=== PATIENT | female | born 1970 | race Caucasian/White ===

== ENCOUNTER 2017-05-21 19:46 | Inpatient (IN) | payer OTHER ==
[~2017-05-21] VITALS: Ht 160 cm; Wt 115.6 kg
[~2017-05-21 19:46] MED LIST: AMITRIPTYLIN25 MG PO; AMITRIPTYLIN50 MG PO; BACTRIM DS1 TAB PO; CELEXA20 MG PO; CIPRO500 MG OR; CIPROFLOXACN500 MG PO; DILAUDID 2MG2 MG/TA1 PO; FERROUS SULFAT325 MG PO; FLORASTOR250 M1 PO; GLIPIZIDE ER10 MG OR; GLIPIZIDE XL5 MG PO; HYDROCHLORO25 MG/TAB PO; HYDROCHLOROT12.5 M1 PO; HYDROCHLOROT12.5 MG PO; LANTUS100 MG/ML SC; LANTUS100 UNIT/M SC; LEVEMIR FL100 UNIT/M SC; LISINOPRIL20 MG PO; LOPRESSOR12.5 MG PO; LORTAB 10 PO; LORTAB 5 OR; LORTAB 5/3255 MG PO; LORTAB5 PO; MACRODANTIN100 MG OR; MACRODANTIN100 MG PO; METFORMIN1000 MG PO; METFORMIN500 MG PO; METO50TA52 PO; MINOCYCLINE100 MG PO; NORCO1 TA1 PO; NOVOLIN R SC; PERCOCET 5/325M1 TAB OR; PERCOCET 5/325M1 TAB PO; PREVACID30 M2 PO; PRILOSEC40 MG PO; TAM75CAP PO; TORADOL PO; TRICOR145 MG PO; TRICOR48 MG PO; ULTRAM50 M1 PO; ULTRAM50 MG OR; ULTRAM50 MG PO; VICODIN1 TA1 PO; XANAX0.5 MG PO; ZESTRIL/PRIN5 MG/TA1 PO; ZESTRIL20 MG OR; ZOFRAN ODT8 MG SL
[2017-05-21] MEDS ORDERED: METFORMIN500 MG PO (19:59)
[2017-05-21] MEDS ORDERED: CILOSTAZOL100 MG PO (20:01)
--- NOTE | 2017-05-21 20:03 | NUR ---
PT PLACED BACK IN WAITING ROOM, ADVISED OF BUSY ER STATUS
--- NOTE | 2017-05-21 20:10 | NUR ---
PT TO RM 14 VIA W/C.
--- NOTE | 2017-05-21 20:50 | NUR ---
DR YANES AT BEDSIDE.
[2017-05-21 21:33] LABS: HEMATOCRIT 30.5 % (37.0-47.0); HEMOGLOBIN 9.7 g/dl (12.0-16.0); IMMATURE GRANULOCYTES 0.5 % (0.0-1.0); MEAN CELL VOLUME 81.6 fL CALC (80.0-100.0); MEAN CORPUSCULAR HGB 25.9 pG CALC (26.0-32.0); MEAN CORPUSCULAR HGB CONC 31.8 g/L CALC (32.0-36.0); NEUT# 5.98 thou/uL (2.00-7.15); RED BLOOD COUNT 3.74 mill/uL (4.20-5.60); RED CELL DISTRI WIDTH 14.6 % (11.5-15.5)
--- NOTE | 2017-05-21 21:35 | NUR ---
PT REQUESTED ACCUCHECK. ACCOMP 119.
[2017-05-21 22:00] LABS: ALBUMIN 3.6 g/dL (3.2-5.0); ALKALINE PHOSPHATASE 88 u/l (38-126); BILIRUBIN, TOTAL 0.3 mg/dL (0.0-1.4); BUN 26 mg/dL (7-17); BUN/CREATININE RATIO 24 (12-20 (CALC)); CALCIUM 9.3 mg/dL (8.4-10.2); CARBON DIOXIDE 20 mmol/l (22-30); CHLORIDE 106 mmol/l (95-108); CREATININE 1.1 mg/dL (0.5-1.0); GFR 53 ML/MIN (>=60 (CALC)); GFR FOR AFR.AMER. > 60 ML/MIN (>=60 (CALC)); GLUCOSE 138 mg/dL (65-105); SGOT/AST 14 u/l (14-36); SGPT/ALT 23 u/l (9-52); SODIUM 140 mmol/l (137-146); TOTAL PROTEIN 7.3 g/dL (6.3-8.2)
[2017-05-21 22:02] LABS: ANION GAP 19 (6-22 (CALC)); POTASSIUM 4.6 mmol/l (3.5-5.1)
--- NOTE | 2017-05-21 22:45 | NUR ---
IV INFUSING, PT WATCHING TV, NO DISTRESS NOTED. CALL TINAJERO IN REACH.
--- NOTE | 2017-05-21 23:10 | NUR ---
REPORT CALLED TO [facility].
--- NOTE | 2017-05-21 23:38 | NUR ---
BALBINA WRAP TO BILAT FEET.
--- NOTE | 2017-05-21 23:45 | NUR ---
PT TO ROOM 269 VIA STRETCHER ACCOMPANIED BY ER STAFF.
--- NOTE | 2017-05-21 23:54 | NUR ---
PT TO 269 WITH RN.
--- NOTE | 2017-05-22 | NUR ---
BILAT FEET COVERED SO THAT PT COULD GET A SHOWER.
[2017-05-22 01:00] VITALS: BP 141/82
--- NOTE | 2017-05-22 01:00 | NUR ---
PT SITTING UP IN BED. PT IS ALERT AND ORIENTED X3. PERRLA. RESP ARE EVEN AND UNLABORED. LUNGS ARE CLEAR. HEART RATE REGULAR. PULSES PALPABLE THROUGHOUT. NO EDEMA NOTED. BS ACTIVE PT REPORTS A NORMAL BM EARLIER TODAY. BOTH GREAT TOE ARE S/P AMPUTATION. LEFT FOOT RED AND WARM TO TOUCH. ULCERS NOTED TO BOTTOM OF BOTH FEET. #20 LAC NO REDNESS OR EDEMA NOTED. WILL CONTINUE TO MONITOR
[2017-05-22 04:35] VITALS: BP 158/65
--- NOTE | 2017-05-22 04:47 | NUR ---
PT RESTING IN BED WITH EYES CLOSED. AROUSES TO VERBAL STIMULI. RESP ARE EVEN AND UNLABORED. NO CHANGE IN PT STATUS. WILL CONTINUE TO MONITOR
--- NOTE | 2017-05-22 07:00 | NUR ---
REPORT RECIEVED FROM CATHERINE BLANDON. PT APPEARS ASLEEP ON ENTRY. RESP EVEN AND UNLABORED. NO SIGNS OF DISTRESS. SAFETY PRECAUTIONS IN PLACE. CALL LIGHT WITHIN REACH. WILL CONTINUE TO MONITOR.
[2017-05-22 09:46] LABS: HEMATOCRIT 29.4 % (37.0-47.0); HEMOGLOBIN 9.2 g/dl (12.0-16.0); IMMATURE GRANULOCYTES 0.5 % (0.0-1.0); MEAN CELL VOLUME 82.6 fL CALC (80.0-100.0); MEAN CORPUSCULAR HGB 25.8 pG CALC (26.0-32.0); MEAN CORPUSCULAR HGB CONC 31.3 g/L CALC (32.0-36.0); NEUT# 4.95 thou/uL (2.00-7.15); RED BLOOD COUNT 3.56 mill/uL (4.20-5.60); RED CELL DISTRI WIDTH 14.6 % (11.5-15.5)
[2017-05-22 10:19] LABS: ANION GAP 17 (6-22 (CALC)); BUN 21 mg/dL (7-17); BUN/CREATININE RATIO 21 (12-20 (CALC)); CALCIUM 8.6 mg/dL (8.4-10.2); CALCULATED LDLCHOLESTEROL 91 mg/dL (62-129 (CALC)); CARBON DIOXIDE 19 mmol/l (22-30); CHLORIDE 109 mmol/l (95-108); CHOLESTEROL HDL RATIO 4.2 (<4.4 (CALC)); GFR 60 ML/MIN (>=60 (CALC)); GFR FOR AFR.AMER. > 60 ML/MIN (>=60 (CALC)); GLUCOSE 162 mg/dL (65-105); HDL CHOLESTEROL 37 mg/dL (>=40); MAGNESIUM 1.2 mg/dL (1.6-2.3); SODIUM 140 mmol/l (137-146); TOTAL CHOLESTEROL 156 mg/dl (0-199); TOTAL TRIGLYCERIDES 142 mg/dl (30-149); VLDL CHOLESTROL 28 mg/dl (1-41 (CALC))
--- NOTE | 2017-05-22 11:44 | NUR ---
PT HAS A BLOOD SUGAR OF 140. LEVEMIR 05/22/17 1030 DOSE HELD. VARGAS GRESHAM NOTIFIED.
--- NOTE | 2017-05-22 12:29 | NUR ---
S: JOANIE CORBIN is a 46 F who presents with worsening cellulitis of left foot. She has a history of IDDM, HTN, kidney sones, anxiety, and depression. All medications in patient's chart were reviewed. Allergies to iodinated contrast dyes. O: VS: BP 158/65, P 95, RR 18, T 97 Actual BW 115.6 kg, IBW 52.4 kg, Adjusted BW 77.7 kg, HT 63 in, Scr 1 g/dL, CrCl (using adjusted body wt) 86.2 ml/min A: Blood culture is pending. P: Patient received a one-time dose of vancomycin 1 g IV on 05/21/17 @ 4221. Vancomycin ordered for pharmacy to dose. Start Vancomycin 1500 mg IV Q12H. Vancomycin trough is to be drawn before the 4th dose on 05/23/17 @ 0130. Vancomycin goal trough is between 10-15 mcg/ml. Pharmacy will follow and/or advise on antibiotics use as needed.
--- NOTE | 2017-05-22 15:30 | NUR ---
IN ROOM WITH PT.
[2017-05-22 16:01] VITALS: BP 172/85
[2017-05-22 19:00] VITALS: BP 170/84
--- NOTE | 2017-05-22 19:32 | NUR ---
REPORT GIVEN TO CATHERINE BUSTAMANTE. NO CHANGE IN PT CONDITION. CALL LIGHT WITHIN REACH.
--- NOTE | 2017-05-22 19:37 | NUR ---
MAGNESIUM SPIKED AND INFUSING WITH NO COMPLICATIONS TO LAC. FAMILY AT BED SIDE. A/O X3, RESPIRATIONS EVEN AND UNLABORED.
--- NOTE | 2017-05-22 19:44 | NUR ---
MEDICATED WITH TYLENOL FOR C/O ABDOMINAL CRAMPING 10/17.
[2017-05-22 21:35] LABS: URINE BILIRUBIN - DIPSTICK NEGATIVE (NEGATIVE); URINE BLOOD DIPSTICK LARGE (NEGATIVE); URINE COLOR YELLOW; URINE GLUCOSE - DIPSTICK NEGATIVE (NEGATIVE); URINE KETONE NEGATIVE (NEGATIVE); URINE LEUK ESTERASE NEGATIVE (NEGATIVE); URINE NITRITE - DIPSTICK NEGATIVE (Negative); URINE PH 5.5 (4.5-8.0); URINE PROTEIN - DIPSTICK 30 mg/dL (NEG-TRACE); URINE UROBILINOGEN - DIPSTICK 0.2 E.U./dL (0.2)
[2017-05-22 21:45] LABS: URINE CLARITY SL CLOUDY
[2017-05-22 21:55] LABS: URINE RBC 25-50 RBC/hpf (0-5); URINE SQUAMOUS EPITHELIAL CELL FEW EPI/hpf (0-FEW); URINE WBC 0-2 WBC/hpf (0-5)
[2017-05-22 22:05] VITALS: BP 148/86
--- NOTE | 2017-05-23 00:40 | NUR ---
PT RESTING WITH EYES CLOSED, RESPIRATIONS EVEN AND UNLABORED, RESPONDS EASILY TO VERBAL COMMAND, ZOSYN SPIKED AND INFUSING WITH NO COMPLICATIONS.
[2017-05-23 05:35] VITALS: BP 119/59
[2017-05-23 06:09] LABS: HEMATOCRIT 28.3 % (37.0-47.0); HEMOGLOBIN 9.1 g/dl (12.0-16.0); IMMATURE GRANULOCYTES 0.4 % (0.0-1.0); MEAN CELL VOLUME 82.5 fL CALC (80.0-100.0); MEAN CORPUSCULAR HGB 26.5 pG CALC (26.0-32.0); MEAN CORPUSCULAR HGB CONC 32.2 g/L CALC (32.0-36.0); NEUT# 3.87 thou/uL (2.00-7.15); RED BLOOD COUNT 3.43 mill/uL (4.20-5.60); RED CELL DISTRI WIDTH 14.5 % (11.5-15.5)
[2017-05-23 06:21] LABS: ANION GAP 16 (6-22 (CALC)); BUN 22 mg/dL (7-17); BUN/CREATININE RATIO 19 (12-20 (CALC)); CALCIUM 8.6 mg/dL (8.4-10.2); CARBON DIOXIDE 20 mmol/l (22-30); CHLORIDE 109 mmol/l (95-108); CREATININE 1.1 mg/dL (0.5-1.0); GFR 53 ML/MIN (>=60 (CALC)); GFR FOR AFR.AMER. > 60 ML/MIN (>=60 (CALC)); GLUCOSE 114 mg/dL (65-105); POTASSIUM 4.6 mmol/l (3.5-5.1); SODIUM 140 mmol/l (137-146)
--- NOTE | 2017-05-23 07:12 | NUR ---
SHIFT CHANGE REPORT FROM MAXX, PT AWAKE ALERT AND ORIENTED, STATES SHE HAD A RESTLESS NIGHT BUT HAS NO PAIN AT THIS TIME, IV ABT JUST COMPLETED AND CATHETER FLUSHED, ALL NEEDS ADDRESSED, CALL TINAJERO IN REACH.
[2017-05-23 09:05] VITALS: BP 131/67
--- NOTE | 2017-05-23 12:03 | NUR ---
SITTING UP IN W/C AT THIS TIME, ALL NEEDS ADDRESSED, CALL TINAJERO IN REACH.
--- NOTE | 2017-05-23 14:36 | NUR ---
CONTACTED DR CORNEJO ABOUT PLAN FOR PT, STATED CONTINUE TO CHANGE DAILY DRESSING AND PT WILL BE CONTACTED WHEN BLOOD FLOW STUDIES ARE RECIEVED/REVIEWED.
[2017-05-23 15:39] VITALS: BP 140/78
--- NOTE | 2017-05-23 17:00 | NUR ---
OLD DRESSINGS REMOVED FROM WOUNDS TO BOTH LEGS, WOUNDS CLEANED WITH 0.9NS AND NEW DRESSINGS APPLIED PER ORDER.
[2017-05-23 19:03] VITALS: BP 168/74
--- NOTE | 2017-05-23 20:28 | NUR ---
LEAKING AT IV SITE DURING MIDDLE IV ABT INFUSION, UNABLE TO RESTART NEW SITE, NIGHT RN INFORMED AND CONTINUE CARE.
--- NOTE | 2017-05-23 21:00 | NUR ---
NEW IV STARTED TO RAC #22 ON 1ST ATTEMPT, TOLERATED WELL. A/O X3, RESPIRATIONS EVEN AND UNLABORED. ACCUCHECK 146, NO HS COVERAGE ORDERED, MEDICATED WITH SCHEDULED LEVEMIR 65INITS SQ, TOLERATED WELL, BED TIME SNACK PROVIDED.
--- NOTE | 2017-05-24 00:10 | NUR ---
OOB USING OWN WHEEL CHAIR TO BATHROOM ON HER OWN, NOT ABLE TO KEEP ACCURATE I'S AND O'S DUE TO PT REMOVING HAT FROM COMMODE, BACK TO BED, ZOSYIN INFUSING TO RAC WITH NO COMPLICATIONS. CALL LIGHT IN REACH.
--- NOTE | 2017-05-24 02:15 | NUR ---
VANCOMYCIN HELD DUE TO VANCO TROUGH BEING 21, SPOKE WITH MIO [employer] PHARMACIST FROM [facility].
[2017-05-24 04:24] VITALS: BP 125/59
--- NOTE | 2017-05-24 06:12 | NUR ---
ZOSYN INFUSING WITH NO COMPLICATINS, DENIES PAIN OR DISCOMFORT.
--- NOTE | 2017-05-24 07:00 | NUR ---
RECEIVED BEDSIDE REPORT FROM MAXX RODRIGUEZ. RESTING IN BED WITH EYES CLOSED, AWAKENS EASILY. RESPS EVEN AND UNLABORED ON ROOM AIR. VOICES NO NEEDS AT THIS TIME. PLAN OF CARE DISCUSSED. SAFETY PRECAUTIONS REINFORCED. BED IN LOWEST POSITION WITH WHEELS LOCKED. CALL LIGHT WITHIN REACH. ENCOURAGED PT TO CALL FOR ANY NEEDS.
[2017-05-24 08:02] VITALS: BP 126/64
--- NOTE | 2017-05-24 09:40 | NUR ---
DR RODRIGUEZ IN WITH PT, NEW ORDERS RECEIVED.
--- NOTE | 2017-05-24 10:38 | NUR ---
Vancomycin single level analysis: Current dose being given: 1500 mg Current dosing interval: 12 hrs Current infusion time (hrs): 2 Single level Trough Data: Trough level obtained: 21 mcg/ml Diagnosis: Cultures and sensitivities: WOUND GRAM + COCCI Recommendations: Give Vancomycin 1000 mg q 12 hrs. Infuse over 2 hrs Thank you for the consult, will continue to follow. Signature: JAYME HODGE PHARMD
--- NOTE | 2017-05-24 12:00 | NUR ---
SITTING IN BEDSIDE CHAIR. FAMILY AT BEDSIDE. #22 RAC INFUSING ZOSYN WITHOUT DIFFICULTY, SITE APPEARS HEALTHY. DRESSINGS TO BILAT FEET CDI. DENIES PAIN OR DISCOMFORT. DR RING IN WITH PT, NEW ORDERS RECEIVED. CALL LIGHT WITHIN REACH. ENCOURAGED PT TO CALL FOR ANY NEEDS.
[2017-05-24 15:15] VITALS: BP 142/68
--- NOTE | 2017-05-24 16:28 | NUR ---
RESTING IN BED WATCHING TV. RESPS EVEN AND UNLABORED ON ROOM AIR. #22 RAC INFUSING WITHOUT DIFFICULTY, SITE APPEARS HEALTHY. DRESSINGS TO BILAT FETT CDI. VOICES NO NEEDS AT THIS TIME. CALL LIGHT WITHIN REACH. WILL CONTINUE TO MONITOR.
[2017-05-24 19:25] VITALS: BP 152/78
--- NOTE | 2017-05-24 21:20 | NUR ---
PT RESTING AT BEDSIDE WATCHING TV;NEW #22G TO LEFT HAND STARTED BY LISA,FLUSHED AND PATENT;CONTACT PRECAUTIONS IN PLACE FOR HX OF MRSA;ASSESSMENT COMPLETED;PT EDUCATED ON NPO DIET AFTER MIDNIGHT AND VERBALIZES UNDERSTANDING;DRESSINGS TO BLE REMAIN CDI;RESPIRATIONS EVEN AND UNLABORED ON RA;PT DENIES ANY OTHER NEEDS AT THIS TIME AND IS EDUCATED TO CALL FOR ASSISTANCE IF NEEDED;CALL LIGHT IN REACH;WILL CONTINUE TO MONITOR
[2017-05-25] VITALS (11 sets, daily range): BP systolic 127–149; BP diastolic 42–76
--- NOTE | 2017-05-25 00:30 | NUR ---
PT APPEARS TO BE SLEEPING AT THIS TIME WITH EYES CLOSED;WOKE PT TO ADMINISTER MEDICATION;IV SITE FOUND DISLODGED AT THIS TIME WITH CATHETER INTACT;NEW #22G STARTED TO LEFT FOREARM BY CATHERINE BRIAN AND SECURED WITH COBAN;PT DENIES ANY OTHER NEEDS AT THIS TIME;WILL CONTINUE TO MONITOR
[2017-05-25 05:48] LABS: HEMATOCRIT 30.6 % (37.0-47.0); HEMOGLOBIN 9.7 g/dl (12.0-16.0); IMMATURE GRANULOCYTES 0.4 % (0.0-1.0); MEAN CORPUSCULAR HGB CONC 31.7 g/L CALC (32.0-36.0); NEUT# 4.79 thou/uL (2.00-7.15); RED BLOOD COUNT 3.73 mill/uL (4.20-5.60); RED CELL DISTRI WIDTH 14.4 % (11.5-15.5)
--- NOTE | 2017-05-25 05:50 | NUR ---
PT APPEARS TO BE SLEEPING WITH EYES CLOSED;WOKE PT TO ADMINISTER SCHEDULED MEDICATION;PT VOICES NO COMPLAINTS OR CONCERNS AT THIS TIME;GOWN PROVIDED;FALL PRECAUTIONS IN PLACE;CALL LIGHT IN REACH;WILL CONTINUE TO MONITOR
[2017-05-25 06:11] LABS: CALCIUM 9.3 mg/dL (8.4-10.2); CREATININE 1.2 mg/dL (0.5-1.0); POTASSIUM 4.4 mmol/l (3.5-5.1)
--- NOTE | 2017-05-25 07:00 | NUR ---
RECEIVED BEDSIDE REPORT FROM DEBRA RODRIGUEZ. RESTING IN BED WITH EYES CLOSED, AWAKENS EASILY. RESPS EVEN AND UNLABORED ON ROOM AIR. DRESSINGS TO BILAT FEET CDI. DENIES PAIN OR DISCOMFORT. ENCOURAGED PT TO REMAIN NPO. PLAN OF CARE DISCUSSED. SAFETY PRECAUTIONS REINFORCED. BED IN LOWEST POSITION WITH WHEELS LOCKED. CALL LIGHT WITHIN REACH. WILL CONTINUE TO MONITOR.
--- NOTE | 2017-05-25 08:10 | NUR ---
TO OR VIA STRETCHER ACCOMPANIED BY DULCE ALEXANDER.
--- NOTE | 2017-05-25 11:55 | NUR ---
FROM OR VIA STRETCHER ACCOMPANIED BY CECE ALEXANDER. TRANSFERRED TO BED WITH STANDBY ASSIST. FAMILY AT BEDSIDE. LEFT FOOT WITH BOOT CAST WRAPPED WITH ETHEL. LEFT FOOT ELEVATED ON 2 PILLOWS WITH ICE PACK TO POPLITEAL FOSSA. #20 LFA INFUSING WITHOUT DIFFICULTY, SITE APPEARS HEALTHY. DENIES PAIN OR DISCOMFORT. ORIENTED TO ROOM AND CALL SYSTEM. SAFETY PRECAUTIONS REINFORCED. BED IN LOWEST POSITION WITH WHEELS LOCKED. CALL LIGHT WITHIN REACH. ENCOURAGED PT AND FAMILY TO CALL FOR ANY NEEDS.
--- NOTE | 2017-05-25 18:08 | NUR ---
TOLERATING REG DIET WITHOUT C/O ABD PAIN OR NAUSEA. LEFT ELEVATED ON 2 PILLOWS, ICE PACK TO POPLITEAL FOSSA. FAMILY AT BEDSIDE. DENIES PAIN OR DISCOMFORT. CALL LIGHT WITHIN REACH. WILL CONTINUE TO MONITOR.
--- NOTE | 2017-05-25 21:40 | NUR ---
PT RESTING IN SUPINE POSITION PLAYING ON HER PHONE;PT VOICES NO COMPLAINTS OR CONCERNS AT THIS TIME;RESPIRATIONS EVEN AND UNLABORED ON RA;#20G TO LEFT FOREARM FLUSHED AND PATENT;DRESSING TO RT AND LT FOOT CDI;PT EDUCATED TO ELEVATE LEFT FOOT AND VERBALIZES UNDERSTANDING;PT DENIES ANY NEEDS AT THIS TIME;SAFETY PRECAUTIONS REINFORCED;CALL LIGHT IN REACH;WILL CONTINUE TO MONITOR
--- NOTE | 2017-05-25 23:30 | NUR ---
PT APPEARS TO BE SLEEPING IN SUPINE POSITION WITH EYES CLOSED;NO S/S OF DISTRESS NOTED;RESPIRATIONS EVEN AND UNLABORED ON RA;LEFT LEG ELEVATED ON PILLOW;FALL PRECAUTIONS IN PLACE;CALL LIGHT IN REACH;WILL CONTINUE TO MONITOR
[2017-05-26 03:05] LABS: HEMATOCRIT 27.3 % (37.0-47.0); HEMOGLOBIN 8.7 g/dl (12.0-16.0); IMMATURE GRANULOCYTES 0.4 % (0.0-1.0); MEAN CORPUSCULAR HGB 26.4 pG CALC (26.0-32.0); MEAN CORPUSCULAR HGB CONC 31.9 g/L CALC (32.0-36.0); NEUT# 5.52 thou/uL (2.00-7.15); RED BLOOD COUNT 3.29 mill/uL (4.20-5.60); RED CELL DISTRI WIDTH 14.6 % (11.5-15.5)
[2017-05-26 04:05] LABS: CALCIUM 8.6 mg/dL (8.4-10.2); CREATININE 1.2 mg/dL (0.5-1.0); MAGNESIUM 1.7 mg/dL (1.6-2.3); POTASSIUM 4.5 mmol/l (3.5-5.1)
[2017-05-26 04:50] VITALS: BP 124/51
--- NOTE | 2017-05-26 04:50 | NUR ---
PT RESTING AT BEDSIDE;VS OBTAINED BY JOE GALICIA;PT DENIES ANY PAIN OR NEEDS AT THIS TIME;RESPIRATIONS EVEN AND UNLABORED ON RA;LEFT LEG REMAINS ELEVATED AND DRESSING CDI;FALL PRECAUTIONS IN PLACE;WILL CONTINUE TO MONITOR
--- NOTE | 2017-05-26 07:00 | NUR ---
RECEIVED BEDSIDE REPORT FROM DEBRA RODRIGUEZ. RESTING IN BED WITH EYES CLOSED. RESPS EVEN AND UNLABORED ON ROOM AIR. DRESSING TO BILAT FEET CDI. DENIES PAIN OR DISCOMFORT. PLAN OF CARE DISCUSSED. SAFETY PRECAUTIONS REINFORCED. BED IN LOWEST POSITION WITH WHEELS LOCKED.CALL LIGHT WIHTIN REACH. ENCOURAGED PT TO CALL FOR ANY NEEDS.
[2017-05-26 08:00] VITALS: BP 145/77
--- NOTE | 2017-05-26 08:25 | NUR ---
TO RADIOLOGY IN STABLE CONDITION VIA WHEELCHAIR ACCOMPANIED BY LEATHA DIAZ.
--- NOTE | 2017-05-26 10:25 | NUR ---
FROM RADIOLOGY VIA WHEELCHAIR ACCOMPANIED BY VOLUNTEER. DOUBLE LUMEN PICC TO ELAYNE, DRESSING INTACT, SITE APPEARS HEALTHY. VOICES NO NEEDS AT THIS TIME.
--- NOTE | 2017-05-26 13:10 | NUR ---
MEDICATED WITH PERCOCET PO FOR C/O 3/10 LEFT FOOT PAIN. ENCOURAGED PT TO ELEVATE LEFT FOOT AND ICE PACK TO LEFT POPLITEAL FOSSA. PT VERBALIZED UNDERSTANDING.
[2017-05-26 15:33] VITALS: BP 144/63
--- NOTE | 2017-05-26 16:00 | NUR ---
SITTING ON EDGE OF BED WITH FEET DANGLING. VISITORS AT BEDSIDE. ENCOURAGED PT TO ELEVATE LEFT FOOT AND ICE PACK ON 20 MINS OFF 20 MINS TO MINIMIZE PAIN AND SWELLING. CALL LIGHT WITHIN REACH. WILL CONTINUE TO MONITOR.
--- NOTE | 2017-05-26 16:00 | NUR ---
Visited pt rm for daily rounding. Pt is waiting for a R foot surgery tomorrow. Pt did not have any questions or concerns regarding her medications.
[2017-05-26 18:58] VITALS: BP 140/54
--- NOTE | 2017-05-26 21:15 | NUR ---
PT RESTING IN SUPINE POSITION WITH FAMILY AT BEDSIDE;PT VOICES NO COMPLAINTS OF PAIN AT THIS TIME;RESPIRATIONS EVEN AND UNLABORED ON RA;DOUBLE LUMEN PICC LINE FLUSHED,PATENT WITH GOOD BLOOD RETURN;PT REMAINS NON-WT BEARING,WC AT BEDSIDE;DRESSING TO BOTH BLE CDI;PT RE-EDUCATED ON KEEPING HER LEFT LEG ELEVATED AND USING AN ICE PACK BUT IS UNINTRESTED IN EDUCATION;PT AWARE OF NPO DIET AFTER MIDNIGHT;FALL PRECAUTIONS IN PLACE WITH CALL LIGHT IN REACH;WILL CONTINUE TO MONITOR
[2017-05-27] VITALS (11 sets, daily range): BP systolic 110–1369; BP diastolic 42–89
--- NOTE | 2017-05-27 00:15 | NUR ---
PT APPEARS TO BE SLEEPING WITH FAMILY AT BEDSIDE;VS OBTAINED BY JOE GALICIA;PT VOICES NO COMPLAINTS OR CONCERNS;RESPIRATIONS EVEN AND UNLABORED ON RA;PT NPO AT THIS TIME;PT EDUCATED TO CALL FOR ASSISTANCE IF NEEDED;CALL LIGHT IN REACH;WILL CONTINUE TO MONITOR
--- NOTE | 2017-05-27 06:00 | NUR ---
PT APPEARS TO BE SLEEPING IN SUPINE POSITION WITH FAMILY AT BEDSIDE;IV ABX STARTED,PICC LINE PATENT;RESPIRATIONS EVEN AND UNLABORED ON RA;PT VOICES NO COMPLAINTS OF CONCERNS;FALL PRECAUTIONS IN PLACE WITH CALL LIGHT IN REACH;WILL CONTINUE TO MONITOR
--- NOTE | 2017-05-27 07:00 | NUR ---
BEDSIDE REPORT RECIEVED FROM MICHAEL RICHARDSON. PT AWAKE AND IN WHEELCHAIR ON ENTRY. RESP EVEN AND UNLABORED. SAFTEY PRECAUTIONS REINFORCED. CALL LIGHT WITHIN REACH. WILL CONTINUE TO MONITOR.
--- NOTE | 2017-05-27 07:40 | NUR ---
PT HAS NO COMPLAINTS OF PAIN. PICC LINE HAS NO SIGNS OF INFLAMATION OR REDNESS. LEFT LEG HAS A HARD CAST ON THE FOOT AND CALF. POPLITEAL PULSE STRONG ON BOTH RIGHT AND LEFT LEG. CAPILARY REFILL <3 SEC. SAFETY PRECAUTIONS REINFORCED. CALL LIGHT WITHIN REACH.
--- NOTE | 2017-05-27 08:35 | NUR ---
PT OFF FLOOR WITH CATHERIEN RODRIGEZ TO OR VIA STRETCHER.
--- NOTE | 2017-05-27 11:25 | NUR ---
PT BACK ON FLOOR WITH OR NURSE. PT ORIENTED TO ROOM AND RESTING IN BED. NO SIGNS OF DISTRESS NOTED. VITALS STABLE. WILL CONTINUE TO MONITOR. CALL LIGHT WITHIN REACH.
--- NOTE | 2017-05-27 18:36 | NUR ---
PT RESITING SUPINE IN BED WATCHING TV WITH DAUGHTER AT BEDSIDE. NO COMPLAINTS OF PAIN FROM PT. POWER PICC PATENT. RIGHT AND LEFT LEG POPLITEAL PULSE STRONG. DRESSINGS CDI. CAPILLARY REFILL <3. CALL LIGHT WITHIN REACH.
--- NOTE | 2017-05-27 20:00 | NUR ---
PT IN BED A/O X3, RESPIRATIONS EVEN AND UNLABORED. P/O DAY 2 LEFT FOOT DUE TO I/D WITH PARTIAL 1ST METATARSAL EXCISION AND PERCUTANEOUS TENDONACHILLES LENGTHENING LEFT LEG. CAST AND ETHEL BANDAGE TO BILAT FEET. TODAY 05/27 PT IS P/O FOR IRRIGATION AND DEBRIDEMENT OF RIGHT FOOT 2ND METATARSAL HEAD RESECTION/RIGHT PERCUTANEOUS ACHILES TENDON LENTHENING. DENIES PAIN. TEACHING DONE REGARDING NWB AND USING BED MCADAMS, PT STATES SHE WILL NOT USE BED MCADAMS AND HAS BEEN USING BSC WITHOUT GETTING OUT OF BED, SHE SCOOTS HER BOTTOM OFF THE SIDE OF BED TO BSC WITH LEGS STILL ON THE BED. ORIENTED TO USE CALL LIGHT WHEN DOING SO, TO PREVENT FALL. CALL LIGHT IN REACH, WILL CONTINUE TO MONITOR.
--- NOTE | 2017-05-28 | NUR ---
RESTING WITH EYES CLOSED, RESPIRATIONS EVEN AND UNLABORED. CALL LIGHT IN REACH.
[2017-05-28 04:21] VITALS: BP 145/47
--- NOTE | 2017-05-28 04:23 | NUR ---
ASKED PT IF SHE NEEDS ASSISTANCE TO BSC, AND DENIES NEED. 1000ML URINE IN BSC, PT HAS NOT CALLED FOR ASSISTANCE ASKED TO BY STAFF TO PREVENT FALL, PT DENIES WEIGHT BEARING TO LOWER EXTREMITIES WHEN USING COMMODE, STATES SHE SCOOTS TO THE EDGE OF THE BED ON TO BSC WITH LEGS STILL ON THE BED. HAT PLACED IN BATHROOM FOR MEASUREMENT OF OUTPUT.
--- NOTE | 2017-05-28 05:55 | NUR ---
MORNING BLOOD WORK DRAWN FROM PICC LINE, GOOD BLOOD RETURN, TOLERATED WELL. FLUSHED WITH SALINE AND HEPARIN. VOICES NO CONCERNS.
[2017-05-28 06:22] LABS: HEMATOCRIT 26.4 % (37.0-47.0); HEMOGLOBIN 8.4 g/dl (12.0-16.0); MEAN CELL VOLUME 83.8 fL CALC (80.0-100.0); MEAN CORPUSCULAR HGB 26.7 pG CALC (26.0-32.0); MEAN CORPUSCULAR HGB CONC 31.8 g/L CALC (32.0-36.0); RED BLOOD COUNT 3.15 mill/uL (4.20-5.60); RED CELL DISTRI WIDTH 14.6 % (11.5-15.5)
[2017-05-28 06:48] LABS: CALCIUM 8.7 mg/dL (8.4-10.2); CREATININE 1.2 mg/dL (0.5-1.0)
--- NOTE | 2017-05-28 07:00 | NUR ---
REPORT RECIEVED FROM MICHALE LILLY. PT ASLEEP ON ENTERANCE. NO SIGNS OF DISTRESS NOTED. RESP EVEN AND UNLABORED. SAFETY PRECAUTIONS REINFORCED. CALL LIGHT WITHIN REACH. WILL CONTINUE TO MONITOR.
[2017-05-28 07:35] VITALS: BP 133/65
--- NOTE | 2017-05-28 09:10 | NUR ---
POWER PICC FLUSHED WITH NS AND HEPARIN PER PROTOCOL.
--- NOTE | 2017-05-28 11:29 | NUR ---
PHYSICAL THERAPY IN ROOM WITH PT.
[2017-05-28 15:46] VITALS: BP 157/77
--- NOTE | 2017-05-28 17:44 | NUR ---
PT UP TO SIDE OF BED EATING DINNER WITH FAMILY AT BEDSIDE. PT HAS NO COMPLAINTS OF PAIN. NO ACUTE CHANGES. BILAT LEG DRESSINGS CDI. POPLITEAL PULSE STRONG. WILL CONTINUE TO MONITOR. CALL LIGHT WITHIN REACH. NON-WEIGHT BEARING REINFORCED. PT INSTRUCTED TO CALL FOR ASSISTANCE.
[2017-05-28 19:26] VITALS: BP 145/59
--- NOTE | 2017-05-28 21:00 | NUR ---
SITTING ON SIDE OF BED A/O X3, RESPIRATIONS EVEN AND UNLABORED. STATES SHE'S BEEN TRANSFERRING HERSELF TO HER OWN W/C AND THEN TRANFERRING TO COMMODE INSTRUCTED BY PHYSINCAL THERAPY. DENIES PAIN. HARD CAST AND ETHEL BANDAGE COVERING BLE, CDI. ACCUCHECK 176. LEVEMIR 3UNITS SQ ADMINISTERED TO ELAYNE, BED TIME SNACK PROVIDED. ENCOURAGED TO USE CALL LIGHT FOR ASSISTANCE, WILL CONTINUE TO MONITOR.
[2017-05-28 23:13] VITALS: BP 136/66
--- NOTE | 2017-05-29 00:30 | NUR ---
RESTING WITH EYES CLOSED, RESPIRATIONS EVEN AND UNLABORED.
[2017-05-29 03:40] VITALS: BP 122/57
--- NOTE | 2017-05-29 04:30 | NUR ---
IN BED WITH EYES CLOSED, RESPIRATIONS EVEN AND UNLABORED.
[2017-05-29 07:35] VITALS: BP 117/63
--- NOTE | 2017-05-29 11:23 | NUR ---
PT.IN BED W/LIGHTS OUT SLEEPING AT THIS TIME. CALL LIGHT IS AT BEDSIDE. REPORT HAS BEEN RECEIVED FROM NIGHT NURSE.
[2017-05-29 15:28] VITALS: BP 163/77
[2017-05-29 19:40] VITALS: BP 149/86
--- NOTE | 2017-05-29 21:40 | NUR ---
PT RESTING IN BED WATCHING TV WITH FAMILY AT BEDSIDE;PT VOICES NO COMPLAINTS OR CONCERNS AT THIS TIME;RESPIRATIONS EVEN AND UNLABORED ON RA;PICC LINE TO UPPER RIGHT ARM FLUSHED,PATENT WITH GOOD BLOOD RETURN;DRESSINGS TO BLE REMAIN CDI;ASSESSMENT COMPLETED;I.S. AT BEDSIDE; CLEAR LUNGS;PT DENIES ANY OTHER NEEDS AT THIS TIME;SAFETY PRECAUTIONS REINFORCED WITH CALL LIGHT IN REACH;WILL CONTINUE TO MONITOR
--- NOTE | 2017-05-30 00:18 | NUR ---
PT APPEARS TO BE SLEEPING IN SUPINE POSITION WITH FAMILY AT BEDSIDE;VS OBTAINED BY JOE DESOUZA;PT VOICES NO COMPLAINTS OR CONCERNS AT THIS TIME;PT EDUCATED TO CALL FOR ASSISTANCE IF NEEDED;FALL PRECAUTIONS IN PLACE WITH CALL LIGHT IN REACH;WILL CONTINUE TO MONITOR
[2017-05-30 00:25] VITALS: BP 134/78
[2017-05-30 04:15] VITALS: BP 135/77
--- NOTE | 2017-05-30 04:15 | NUR ---
PT APPEARS TO BE SLEEPING IN SUPINE POSITION WITH FAMILY AT BEDSIDE;VS OBTAINED BY JOE DESOUZA;PT VOICES NO CONCERNS OR COMPLAINTS;RESPIRATIONS EVEN AND UNLABORED ON RA;RE-EDUCATED PT ON ELEVATION OF BLE;DRESSING REMAIN CDI;WILL CONTINUE TO MONITOR
--- NOTE | 2017-05-30 07:05 | NUR ---
PT.IN BED SLEEPING AT THIS TIME W/FAMILY ASLEEP AT BEDSIDE ON ROLL-AWAY BED. NO S/S OF DISTRESS, CALL LIGHT AT BEDSIDE
[2017-05-30 07:20] VITALS: BP 128/59
--- NOTE | 2017-05-30 08:51 | NUR ---
PT.IS SLEEPING, BUT AWOKE TO MY ENTERING THE ROOM. V/S ASSESSED AND PT.MEDICATED W/AM MEDICATIONS ORDERED. ANTIBIOTIC THERAPY ADMINISTERED AT THIS TIME. TOES BILATERAL WARM TO TOUCH, GOOD MOVEMENT BILAT. PT.DENIES ANY PAIN AT THIS TIME.
[2017-05-30 10:17] LABS: HEMATOCRIT 28.9 % (37.0-47.0); HEMOGLOBIN 9.3 g/dl (12.0-16.0); IMMATURE GRANULOCYTES 0.5 % (0.0-1.0); MEAN CELL VOLUME 81.2 fL CALC (80.0-100.0); MEAN CORPUSCULAR HGB 26.1 pG CALC (26.0-32.0); MEAN CORPUSCULAR HGB CONC 32.2 g/L CALC (32.0-36.0); NEUT# 5.48 thou/uL (2.00-7.15); RED BLOOD COUNT 3.56 mill/uL (4.20-5.60); RED CELL DISTRI WIDTH 14.4 % (11.5-15.5)
[2017-05-30 10:42] LABS: ANION GAP 18 (6-22 (CALC)); BUN 13 mg/dL (7-17); BUN/CREATININE RATIO 12 (12-20 (CALC)); CALCIUM 9.1 mg/dL (8.4-10.2); CARBON DIOXIDE 22 mmol/l (22-30); CHLORIDE 104 mmol/l (95-108); CREATININE 1.1 mg/dL (0.5-1.0); GFR 53 ML/MIN (>=60 (CALC)); GFR FOR AFR.AMER. > 60 ML/MIN (>=60 (CALC)); GLUCOSE 231 mg/dL (65-105); POTASSIUM 4.2 mmol/l (3.5-5.1); SODIUM 140 mmol/l (137-146)
[2017-05-30 10:48] LABS: MAGNESIUM 1.1 mg/dL (1.6-2.3)
[2017-05-30] MEDS ORDERED: VERAPAMIL HCL180 MG PO (12:54)
[2017-05-30] MEDS ORDERED: NOVOLOG100 UNIT/M SC (12:54)
[2017-05-30] MEDS ORDERED: ROCEPHIN 2 GM2 GM IV (12:54)
[2017-05-30] MEDS ORDERED: PERCOCET 10/31 COMBO PO (12:54)
--- NOTE | 2017-05-30 14:32 | NUR ---
Patient seen today for instruction in transfer safety to tub/shower using DME to maintain WBS. Patient educated in tub boards/tub transfer benches and home management safety W/C level. Patient reported going home today after receiving Cam walkers. Patient is motivated and cooperative and will benefit from home health care O.T. for safety/home management skills.
[2017-05-30 15:10] VITALS: BP 144/78
--- NOTE | 2017-05-30 15:31 | NUR ---
Spoke to patient regarding new medcations and their side-effects during discharge med rec. Spoke to patient about the importance of completing the course of IV antibiotics. Discussed the possible side-effects of antibiotics including nausea, vomiting, diarrhea, and infusion site reactions. Talked about diabetic diet and daily glucose monitoring. Talked in detail regarding dose adjustments for Lantus per discharge instructions. Talked about the signs, symptoms, and management of hypoglycemia.
--- NOTE | 2017-05-30 16:45 | NUR ---
PT.MEDICATED W/MAGNESIUM SULFATE AT THIS TIME. DR. IZQUIERDO REMOVED DRESSING/REDRESSED FEET BILAT AND FITTED PT.TO BOOTS. FAMILY AT BEDSIDE. PT.DENIES ANY OTHER NEEDS AT THIS TIME.
--- NOTE | 2017-05-30 18:24 | NUR ---
PT.MAG SULFATE HAS COMPLETED, PT.FLUSHED AND FLUSHED W/HEPARIN FOR PICC CARE AND PT.DISCHARGED OFF THE UNIT FLOOR IN GOOD CONDITION VIA WC ACCOMPANIED BY FAMILY.
== END 2017-05-30 18:25 | disposition home or self-care (01) | DRG 629 ==
LOC: ED 19:46 → ED-I 22:30 → ED 23:12 → MS2 23:13
PROVIDERS: Emergency Medicine; Internal Medicine; Nurse Practitioner Family; ADMIT Internal Medicine; ATTEND Internal Medicine
PROC: 0KBW0ZZ Excision of Left Foot Muscle, Open Approach (ICD-10-PCS; principal; 2017-05-22)
PROC: 0KBV0ZZ Excision of Right Foot Muscle, Open Approach (ICD-10-PCS; 2017-05-22)
PROC: 0QBP0ZX Excision of Left Metatarsal, Open Approach, Diagnostic (ICD-10-PCS; 2017-05-25)
PROC: 0L8P3ZZ Division of Left Lower Leg Tendon, Percutaneous Approach (ICD-10-PCS; 2017-05-25)
PROC: 0KBW0ZZ Excision of Left Foot Muscle, Open Approach (ICD-10-PCS; 2017-05-25)
PROC: 02HV33Z Insertion of Infusion Device into Superior Vena Cava, Percutaneous Approach (ICD-10-PCS; 2017-05-26)
PROC: B518ZZA Fluoroscopy of Superior Vena Cava, Guidance (ICD-10-PCS; 2017-05-26)
PROC: 0L8N3ZZ Division of Right Lower Leg Tendon, Percutaneous Approach (ICD-10-PCS; 2017-05-27)
PROC: 0QBN0ZZ Excision of Right Metatarsal, Open Approach (ICD-10-PCS; 2017-05-27)
PROC: 0KBV0ZZ Excision of Right Foot Muscle, Open Approach (ICD-10-PCS; 2017-05-27)
DX: E11.69 Type 2 diabetes mellitus with other specified complication (principal); M86.9 Osteomyelitis, unspecified; E11.22 Type 2 diabetes mellitus with diabetic chronic kidney disease; E11.621 Type 2 diabetes mellitus with foot ulcer; E11.42 Type 2 diabetes mellitus with diabetic polyneuropathy; L03.116 Cellulitis of left lower limb; E83.42 Hypomagnesemia; L97.426 Non-pressure chronic ulcer of left heel and midfoot with bone involvement without evidence of necrosis; L97.416 Non-pressure chronic ulcer of right heel and midfoot with bone involvement without evidence of necrosis; Z68.42 Body mass index [BMI] 45.0-49.9, adult; E11.628 Type 2 diabetes mellitus with other skin complications; N18.3 Chronic kidney disease, stage 3 (moderate); I12.9 Hypertensive chronic kidney disease with stage 1 through stage 4 chronic kidney disease, or unspecified chronic kidney disease; F43.10 Post-traumatic stress disorder, unspecified; F41.9 Anxiety disorder, unspecified; Q66.89 Other specified congenital deformities of feet; F32.9 Major depressive disorder, single episode, unspecified; L40.50 Arthropathic psoriasis, unspecified; D63.1 Anemia in chronic kidney disease; E86.0 Dehydration; D50.9 Iron deficiency anemia, unspecified; Z79.4 Long term (current) use of insulin; Z89.411 Acquired absence of right great toe; Z89.412 Acquired absence of left great toe; Z87.442 Personal history of urinary calculi; B95.61 Methicillin susceptible Staphylococcus aureus infection as the cause of diseases classified elsewhere
CPT/HCPCS: J1650; J3370; J3475

== ENCOUNTER 2017-10-04 12:10 | Inpatient (IN) | payer OTHER ==
[~2017-10-04] VITALS: Ht 160 cm; Wt 121.5 kg
[~2017-10-04 12:10] MED LIST changes: +CILOSTAZOL100 MG PO; +NOVOLOG100 UNIT/M SC; +PERCOCET 10/31 COMBO PO; +ROCEPHIN 2 GM2 GM IV; +VERAPAMIL HCL180 MG PO
--- NOTE | 2017-10-04 12:20 | NUR ---
PT SENT BACK TO WAITING ROOM, ADVISED OF BUSY ER STATUS
--- NOTE | 2017-10-04 12:59 | NUR ---
PT TO ROOM FOR EXAM
--- NOTE | 2017-10-04 13:35 | NUR ---
PT BROUGHT BACK TO ROOM FOR EXAM
[2017-10-04 14:41] LABS: HEMATOCRIT 29.4 % (37.0-47.0); HEMOGLOBIN 9.6 g/dl (12.0-16.0); IMMATURE GRANULOCYTES 0.6 % (0.0-1.0); MEAN CELL VOLUME 83.5 fL CALC (80.0-100.0); MEAN CORPUSCULAR HGB 27.3 pG CALC (26.0-32.0); MEAN CORPUSCULAR HGB CONC 32.7 g/L CALC (32.0-36.0); NEUT# 13.63 thou/uL (2.00-7.15); RED BLOOD COUNT 3.52 mill/uL (4.20-5.60); RED CELL DISTRI WIDTH 14.3 % (11.5-15.5)
[2017-10-04 14:59] LABS: CREATININE 1.7 mg/dL (0.5-1.0); POTASSIUM 3.8 mmol/l (3.5-5.1)
--- NOTE | 2017-10-04 15:03 | NUR ---
CM spoke with regarding admission status after reviewing the case and advised IP d/t active drainage fron the wound and elevates WBCs. stated " she will be here at least 2-3 days" and voiced agreement to IP.
--- NOTE | 2017-10-04 16:00 | NUR ---
AWAITING BED ASSIGNMENT, DENIES PAIN.
[2017-10-04] MEDS ORDERED: NOVOLOG100 UNIT/M SC ×2 (16:07→16:08)
[2017-10-04] MEDS ORDERED: METOPROL TAR25 MG PO (16:11)
[2017-10-04] MEDS ORDERED: LASIX20 MG PO (16:12)
[2017-10-04] MEDS ORDERED: TIMOLOL 0.5%5 ML OU (16:12)
--- NOTE | 2017-10-04 16:25 | NUR ---
DR RODRIGUEZ AT BEDSIDE FOR WOUND TREATMENT
--- NOTE | 2017-10-04 16:48 | NUR ---
Admission Note Report Given to: DEBRA ALEXANDER Transported by: Wheelchair X Stretcher Transported with: X Nurse Transporter X Patent IV O2 Label Printing Machinist
--- NOTE | 2017-10-04 16:50 | NUR ---
PT TRANSFERRED TO FLOOR VIA IN STABLE CONDITION ACCOMPANIED BY MARIELLA,CATHERINE AND FAMILY;PT REMAINED NON-AMBULATORY AT THIS TIME STATING "I WOULD RATHER REST IN THE WC",WT WAS OBTAINED ON STANDING SCALE;PT REPORTS HAVING DRY CRACKS ON HER FEET FOR A WEEK UNTIL BILATERAL HEELS STARTED DRAINING;BILATERAL FEET DRESSED WITH KERLEX IN THE ER BY DR. May;PT TO BE TAKEN DOWN TO OR FOR DEBRIDEMENT ON 10/05/17 @0830;UNABLE TO PALPATE PEDAL PULSES AT THIS TIME DUE TO DRESSINGS;PT DENIES ANY PAIN AND IS RE-EDUCATED ON PAIN SCALE AND REPORTING;RESPIRATIONS EVEN AND UNLABORED ON RA,CLEAR LUNG SOUNDS NOTED;ABDOMEN SOFT WITH X4 HYPOACTIVE BOWEL SOUNDS;#20G TO RAC INFUSING NS @ 100ML/HR,SITE APPEARS HEALTHY;PT EDUCATED ON NPO DIET STATUS AFTER MIDNIGHT AND VERBALIZES UNDERSTANDING;LAST BM 10/02/17;ALL SAFETY PRECAUTIONS REINFORCED;FALL PRECAUTIONS IN PLACE;WILL CONTINUE TO MONITOR
--- NOTE | 2017-10-04 19:31 | NUR ---
PT IN BED A/O X3, RESPIRATIONS EVEN AND UNLABORED. NURSE TO NURSE REPORT RECEIVED FROM DEBRA RODRIGUEZ, ENCOURAGED TO USE CALL LIGHT. WILL CONTINUE TO MONITOR.
[2017-10-04 19:56] VITALS: BP 142/66
--- NOTE | 2017-10-04 20:10 | NUR ---
TEMP 101.3, TYLENOL 650MG PO PROVIDED AT THIS TIME.
--- NOTE | 2017-10-04 23:50 | NUR ---
RESTING WITH EYES CLOSED, RESPIRATIONS EVEN AND UNLABORED. TEMP 97.6 AT THIS TIME. WATER REMOVED FROM BED SIDE, PT AWARE OF NPO AFTER MIDNIGHT. CALL LIGHT IN REACH.
[2017-10-05] VITALS (11 sets, daily range): BP systolic 102–143; BP diastolic 35–73
--- NOTE | 2017-10-05 05:00 | NUR ---
PT CALLED FOR ASSISTANCE DUE TO IV, IV TO LH HAS BECOME DISLODGED WITH CATH TIP INTACT. IV FLUIDS CONNECTED TO RAC, INFUSING WITH NO COMPLICATIONS.
[2017-10-05 05:42] LABS: HEMATOCRIT 26.9 % (37.0-47.0); HEMOGLOBIN 8.6 g/dl (12.0-16.0); IMMATURE GRANULOCYTES 0.8 % (0.0-1.0); MEAN CELL VOLUME 84.3 fL CALC (80.0-100.0); NEUT# 10.2 thou/uL (2.00-7.15); RED BLOOD COUNT 3.19 mill/uL (4.20-5.60); RED CELL DISTRI WIDTH 14.4 % (11.5-15.5)
[2017-10-05 05:46] LABS: CREATININE 1.7 mg/dL (0.5-1.0); POTASSIUM 3.6 mmol/l (3.5-5.1)
[2017-10-05 05:47] LABS: MAGNESIUM 1.5 mg/dL (1.6-2.3)
--- NOTE | 2017-10-05 06:18 | NUR ---
ATTEMPTED TO OBTAIN CONCENT FOR I'&D TO BILAT FEET, PT STATES SHE WANTS TO TALK TO HER DOCTOR PRIOR TO SIGNING CONCENT.
--- NOTE | 2017-10-05 07:15 | NUR ---
REPORT RECEIVED FROM MICHAEL LILLY;PT APPEARS TO BE SLEEPING IN SUPINE POSITION;NO S/S OF DISTRESS NOTED;RESPIRATIONS EVEN AND UNLABORED ON RA;IV SITE REMAINS PATENT;CONTACT PRECAUTIONS IN PLACE FOR HX OF MRSA;PT ENCOURAGED TO EXPRESS CONCERNS;NPO DIET STATUS;CALL LIGHT IN REACH;WILL CONTINUE TO MONITOR
--- NOTE | 2017-10-05 07:50 | NUR ---
PT APPEARS TO BE SLEEPING IN LEFT SIDE LAYING POSITION;WOKE PT TO OBTAIN VS AND COMPLETE ASSESSMENT;CURRENT TEMP 100.2.BLANKETS REMOVED AND AC LOWERED;RESPIRATIONS EVEN AND UNLABORED ON RA,CLEAR/DIMINISHED LUNG SOUNDS NOTED;ABDOMEN SOFT ON PALPATION AND ACTIVE IN ALL 4 QUADRANTS;NPO DIET STATUS SINCE MIDNIGHT;UNABLE TO PALPATE PEDAL PULSES DUE TO PRE-OP DRESSINGS,CDI;PHOTOGRAPHS OF WOUNDS IN CHART;#20G TO RAC INFUSING NS @ 100ML/HR,SITE APPEARS HEALTHY;CONTACT PRECAUTIONS IN PLACE FOR HX OF MRSA;PT VOICES NO COMPLAINTS OF PAIN,PAIN SCALE AND REPORTING RE-EDUCATED;FALL PRECAUTIONS IN PLACE;PT ENCOURAGED TO CALL FOR ASSISTANCE IF NEEDED;CALL LIGHT IN REACH;WILL CONTINUE TO MONITOR
--- NOTE | 2017-10-05 08:35 | NUR ---
PT TRANSFERRED TO OR VIA STRETCHER IN STABLE CONDITION ACCOMPANIED BY OR STAFF
--- NOTE | 2017-10-05 08:40 | NUR ---
Drug Selected: Vancomycin Age: 47 years Weight: 110 kg Height: 63 in Gender: Female SCR: 1.7 mg/dl Dosing weight: 75.44 kg IBW: 52.40 kg CRCL (ml/min): 33.8 Give Vancomycin 1250 mg q24 hrs PATIENT IS BEING TREATED FOR A DIABETIC FOOT INFECTION WE WILL TARGET A GOAL TROUGH OF 10-15 WE WILL PULL A TROUGH ON 10/07/17 AT 1330 THE PATIENT'S SCR IS ELEVATED WE WILL FOLLOW SCR AND ADJUST VANCO DOSE INDICATED.
--- NOTE | 2017-10-05 11:30 | NUR ---
PT TRANSPORTED BACK TO FLOOR VIA STRETCHER ACCOMPANIED BY OR STAFF;PT TRANSFERRED TO BED WITH ASSIST;MP PORTER AT BEDSIDE;PT DROWSY AT THIS TIME;VS OBTAINED;RESPIRATIONS EVEN AND UNLABORED ON RA;BILATERAL ANKLES DRESSED WITH ABD,CAST PADDING,4X4'S AND ZERFORM;PT ENCOURAGED TO KEEP LEGS ELEVATED ON X2 PILLOWS;CAP REFILL LESS THAN 3 SECONDS;I.S. AT BEDSIDE AND PT EDUCATED ON USING 10X PER HOUR WHILE AWAKE,GOAL SET TO 1500;PT DENIES ANY PAIN OR DISCOMFORTS,PAIN SCALE AND REPORTING RE-EDUCATED;WILL CONTINUE TO MONITOR
--- NOTE | 2017-10-05 14:30 | NUR ---
PT MEDICATED WITH TYLENOL 650MG PO FOR TEMP OF 99.4;PT TOLERATING PO FLUIDS WELL;DENIES ANY PAIN AT THIS TIME
--- NOTE | 2017-10-05 17:20 | NUR ---
PT APPEARS TO BE SLEEPING IN SUPINE POSITION WITH FAMILY AT BEDSIDE;IV SITE PATENT INFUSING NS @ 100ML/HR;BILATERAL FEET ELEVATED ON X2 PILLOWS;I.S. AT BEDSIDE;CONTACT PRECAUTIONS REMAIN IN PLACE;BED IN THE LOWEST POSITION WITH CALL LIGHT IN REACH;WILL CONTINUE TO MONITOR
--- NOTE | 2017-10-05 19:00 | NUR ---
RECEIVED CHANGE OF SHIFT REPORT FROM MICHAEL RICHARDSON. PATIENT ALERT AND OREINTED AND UP TO WHEELCHAIR. NO APPARENT ACUTE DISTRESS NOTED. WILL CONTINUE TO MONITOR.
--- NOTE | 2017-10-06 | NUR ---
PATIENT RESTING QUIETLY IN BED WITH EYES CLOSED AND APPEARS TO BE ASLEEP. RESP EVEN AND NON-LABORED. NO APPARENT ACUTE DISTRESS NOTED. WILL CONTINUE TO MONITOR.
--- NOTE | 2017-10-06 04:00 | NUR ---
PATIENT RESTING QUIETLY AT THIS TIME. NO APPARENT ACUTE CHANGES NOTED IN PT'S CONDITION.
[2017-10-06 04:21] VITALS: BP 137/79
[2017-10-06 06:44] LABS: HEMATOCRIT 23.9 % (37.0-47.0); HEMOGLOBIN 7.6 g/dl (12.0-16.0); IMMATURE GRANULOCYTES 0.9 % (0.0-1.0); MEAN CELL VOLUME 85.7 fL CALC (80.0-100.0); MEAN CORPUSCULAR HGB 27.2 pG CALC (26.0-32.0); MEAN CORPUSCULAR HGB CONC 31.8 g/L CALC (32.0-36.0); NEUT# 10.53 thou/uL (2.00-7.15); RED BLOOD COUNT 2.79 mill/uL (4.20-5.60); RED CELL DISTRI WIDTH 14.7 % (11.5-15.5)
[2017-10-06 06:49] LABS: CHOLESTEROL HDL RATIO 7.5 (<4.4 (CALC)); CREATININE 1.9 mg/dL (0.5-1.0); POTASSIUM 4.2 mmol/l (3.5-5.1)
[2017-10-06 07:50] VITALS: BP 132/62
--- NOTE | 2017-10-06 07:50 | NUR ---
PT HAS BEEN RESTING WITH EYES CLOSED. NO DISTRESS NOTED. IV SITE IS FREE FROM REDNESS OR EDEMA. HR IS REG, PULSES ARE STRONG X4, ABD IS SOFT WITH ACTIVE BS. DRESSING ON BILATERAL FEET ARE CDI.
--- NOTE | 2017-10-06 12:15 | NUR ---
PT IS RELAXING IN BED LIKES TO HAVE THE COVERS ON TOP. IV SITE IS FREE FROM REDNESS OR EDEMA. CONTINUE TO OBSERVE AND MONITOR.
--- NOTE | 2017-10-06 16:15 | NUR ---
PT IS RELAXING IN BED WITH NO DISTRESS NOTED. IV SITE WILL BE CHAMNGED DUE TO LEAKING. AT 1630 WAS PLACED IN RAC WITH #22. PT TOLERATED WELL
[2017-10-06 16:29] VITALS: BP 125/57
--- NOTE | 2017-10-06 16:30 | NUR ---
PT'S IV SITE DISCONTINUED ON RAC DUE TO LEAKING., NEW ONE PLACED IN LAC WITH 3ATTEMPTS BY ER STAFF.
[2017-10-06 19:15] VITALS: BP 138/69
--- NOTE | 2017-10-06 19:55 | NUR ---
PT.IS UPRIGHT IN BED, DRESSINGS TO FEET BILAT CDI, IV PUMP WAS BEEPING UPON ENTERING ROOM, UPON INSPECTION IV SITE HAS INFILTRATED. EDEMA AT SITE, PT.DENIES ANY DISCOMFORT. CHILD IS AT BEDSIDE IN ROOM WITH PT. CALL LIGHT W/IN REACH
--- NOTE | 2017-10-06 22:36 | NUR ---
PT.MEDICATED FOR TEMP OF 101.6 AND HEADACHE. UN ABLE TO ACCESS IV SITE AT THIS TIME. STEPDOWN NURSE NOTIFIED THAT WE HAVE BEEN UN ABLE TO ACCESS A SITE AT THIS TIME. WE ARE AWAITING SOMEONE FROM ED TO COME ATTEMPT ACCESS. WILL FOLLOW-UP WITH LAB DRAWS, FLUIDS AND ANTIBIOTIC THERAPY AT THAT TIME. PT.C/O MILD COUGH/CONGESTION, LUNG SOUNDS ARE CLEAR/DIM LOWER. DENIES ANY OTHER PAIN OR DISTRESS AT THIS TIME. CALL LIGHT IS W/IN REACH AND PT.LEFT W/LIGHTS OFF. SHE IS GOING TO TRY AND SLEEP FOR NOW. DRESSINGS ARE CDI TO FEET BILAT.
[2017-10-07 00:36] LABS: HEMATOCRIT 23.7 % (37.0-47.0); HEMOGLOBIN 7.7 g/dl (12.0-16.0); IMMATURE GRANULOCYTES 1.1 % (0.0-1.0); MEAN CELL VOLUME 83.5 fL CALC (80.0-100.0); MEAN CORPUSCULAR HGB 27.1 pG CALC (26.0-32.0); MEAN CORPUSCULAR HGB CONC 32.5 g/L CALC (32.0-36.0); NEUT# 12.26 thou/uL (2.00-7.15); RED BLOOD COUNT 2.84 mill/uL (4.20-5.60); RED CELL DISTRI WIDTH 14.7 % (11.5-15.5)
--- NOTE | 2017-10-07 00:37 | NUR ---
PT.MEDICATED W/ANTIBIOTIC THERAPY USING NEW IV SITE. PT.WAS UP TO RESTROOM AND ASSISTED BACK TO BED. DENIES ANY OTHER NEEDS AT THIS TIME. AFEBRILE AT THIS TIME. CALL LIGHT AT SIDE AND PT.ENCOURAGED TO CALL IF ANY OTHER NEEDS ARISE.
[2017-10-07 01:13] LABS: BILIRUBIN, TOTAL 0.3 mg/dL (0.0-1.4); CREATININE 1.7 mg/dL (0.5-1.0); POTASSIUM 3.5 mmol/l (3.5-5.1); TOTAL PROTEIN 6.3 g/dL (6.3-8.2)
[2017-10-07 01:14] LABS: ALBUMIN 2.7 g/dL (3.2-5.0)
--- NOTE | 2017-10-07 03:08 | NUR ---
PT.IV FLUIDS REPLENISHED, NS@125 RUNNING. PT.IS SLEEPING. NO S/S OF DISTRESS. CALL LIGHT IS W/IN REACH
[2017-10-07 04:32] VITALS: BP 94/53
[2017-10-07 08:15] VITALS: BP 126/74
--- NOTE | 2017-10-07 08:15 | NUR ---
ASSESSMENT IS COMPLTED: PT IS ALERT AND ORIENTED. HR IS REG, PULSES ARE STRONG X4,ABD IS SOFT WITH ACTIVE BS. IV SITE IS FREE FROM REDNESS OR EDEMA. DRESSING ON BILAT FEET ARE CDI . CONTINUE TO OSEBRVE AND MONITOR.
[2017-10-07 11:56] LABS: URINE BILIRUBIN - DIPSTICK NEGATIVE (NEGATIVE); URINE BLOOD DIPSTICK TRACE-INTACT (NEGATIVE); URINE COLOR YELLOW; URINE GLUCOSE - DIPSTICK NEGATIVE (NEGATIVE); URINE KETONE NEGATIVE (NEGATIVE); URINE LEUK ESTERASE NEGATIVE (Negative); URINE NITRITE - DIPSTICK NEGATIVE (Negative); URINE PH 5.5 (4.5-8.0); URINE PROTEIN - DIPSTICK 100 mg/dL (NEG-TRACE); URINE SPECIFIC GRAVITY 1.025; URINE UROBILINOGEN - DIPSTICK 0.2 E.U./dL (0.2)
--- NOTE | 2017-10-07 12:20 | NUR ---
PT IS RELAXING IN BED WITH MO DISTRESS NOTED. IV SITE IS FREE FROM REDNESS OR EDEMA.
[2017-10-07 14:44] LABS: URINE CLARITY CLEAR
[2017-10-07 14:57] LABS: URINE RBC 0-2 RBC/hpf (0-5); URINE SQUAMOUS EPITHELIAL CELL FEW EPI/hpf (0-FEW); URINE WBC 0-2 WBC/hpf (0-5)
[2017-10-07 15:29] VITALS: BP 147/82
--- NOTE | 2017-10-07 15:30 | NUR ---
PT IS RELAXING IN BED WITH NO DISTRESS NOTED. C/O SORE THROAT, AND BURNING WHEN URINATING SENT UA FOR TESTING. CONTINUE TO OBSERVE AND MONITOR.
--- NOTE | 2017-10-07 16:30 | NUR ---
PT IS RELAXING IN BED AND NO DISTRESS NOTED. DID MENTION ABOUT SORE THROAT. SPOKE WITH DR RODRIGUEZ RE: SORE THROAT. WILL ATTEMPT TO SPEAK WITH OPAL GRESHAM.
--- NOTE | 2017-10-07 19:00 | NUR ---
PT AGAIN ASKED ABOUT SOMETHING FOR HER THROAT INFORMED ONCOMING NURSE AND ABLE TO SPEAK WITH TISSUE PACKER RE: MEDICATIONS.
--- NOTE | 2017-10-07 19:05 | NUR ---
PT.IS IN THE RESTROOM AT THIS TIME, DENIES NEEDING ANY ASSISTANCE, INSTRUCTED TO PULL RED CORD TO CALL FOR ASSISTANCE NEEDED.
[2017-10-07 20:20] VITALS: BP 164/73
--- NOTE | 2017-10-07 22:45 | NUR ---
PT.IS IN RESTROOM GETTING CLEANED UP. DRESSING TO FEET BILATERALLY AND IV HAVE BEEN COVERED AND SHE HAS BEEN INSTRUCTED NOT TO GET WATER DIRECTLY ON FOOT AREA. I WILL ADMINISTER ANTIBIOTIC THERAPY UPON PT.FINISHING IN RESTROOM. DAUGHTER IS IN ROOM AND ASSISTING HER MOTHER NEEDED. I ENCOURAGED BOTH TO CALL IF ANY ASSISTANCE WAS NEEDED, SHE ASKED IF HER DAUGHTER COULD ASSIST HER. I SHOWED THEM THE RED PULL CORD IN THE RESTROOM.
--- NOTE | 2017-10-07 23:10 | NUR ---
PT.IS STILL IN RESTROOM, DENIES NEEDING ANY ASSISTANCE, WILL RETURN FOR ADMINISTRATION OF ANTIBIOTIC THERAPY.
[2017-10-08] VITALS (8 sets, daily range): BP systolic 110–171; BP diastolic 47–71
--- NOTE | 2017-10-08 04:37 | NUR ---
PT.V/S ASSESSED, TEMP 99.2, PT.C/O HER THROAT HURTING, BACK AND HEAD AND ASKED FOR SOMETHING FOR PAIN AND ICE CHIPS FOR THROAT. MEDICATED PT.AT THIS TIME AND PT.PROVIDED W/ICE CHIPS. DENIES ANY OTHER NEEDS AT THIS TIME, BUT ENCOURAGED HER TO CALL IF ANY NEEDS ARISE.
[2017-10-08 05:21] LABS: HEMATOCRIT 22.3 % (37.0-47.0); IMMATURE GRANULOCYTES 2.2 % (0.0-1.0); MEAN CELL VOLUME 86.8 fL CALC (80.0-100.0); MEAN CORPUSCULAR HGB 26.8 pG CALC (26.0-32.0); MEAN CORPUSCULAR HGB CONC 30.9 g/L CALC (32.0-36.0); PLATELET COUNT 278 thou/uL (130-400); RED BLOOD COUNT 2.57 mill/uL (4.20-5.60); RED CELL DISTRI WIDTH 15.1 % (11.5-15.5)
[2017-10-08 05:53] LABS: HEMOGLOBIN 6.9 g/dl (12.0-16.0); MANUAL DIFFERENTIAL YES
--- NOTE | 2017-10-08 05:53 | NUR ---
CELIA OF LAB CALLED W/CRITICAL HGB 6.9 AND HCT 22.3, PHYSICIAN WILL BE NOTIFIED.
[2017-10-08 06:00] LABS: CREATININE 1.3 mg/dL (0.5-1.0); MAGNESIUM 1.6 mg/dL (1.6-2.3); POTASSIUM 3.6 mmol/l (3.5-5.1)
--- NOTE | 2017-10-08 08:24 | NUR ---
PT HAS BEEN RESTING IN BED WITH MO DISTRESS NOTED. IV SITE IS FREE FROM REDNESS OR EDEMA. DRESSING ON BILAT FEET ARE CDI. HR IS REG, PULSES ARE STRONG X4, ABD IS SOFT WITH ACTIVE BS.
--- NOTE | 2017-10-08 09:23 | NUR ---
UNIT OF BLOOD TRANSFUSING AT THIS TIME. NO DISTRESS NOTED.
--- NOTE | 2017-10-08 10:34 | NUR ---
SPOKE WITH DR MORALES RE: HEMOGLOBIN DROPPING. WAS INFORMED THAT SHE WAS NOT HAVING ANY ACTIVE BLEEDING ON HER FEET. SHE IS CURRENTLY 1/[address] WITH HER TRANSFUSION.
--- NOTE | 2017-10-08 12:45 | NUR ---
PT WAS COMPLETING THE BLOOD TRANSFUSION AND TOLERATED WELL CONTINUE TO OSBERVE AND MONITOR.
--- NOTE | 2017-10-08 16:45 | NUR ---
PT IS RELAXING IN THE CHAIR NO DISTRESS NOTED. IV SITE IS FREE FROM REDNESS OR EDEMA. CONTINUE TO OSBERVE AND MONITOR.
--- NOTE | 2017-10-08 22:21 | NUR ---
PT.MEDICATED AT THIS TIME ORDERS PROVIDE. ESHA ELAM, PT.BS@125 AND REPORTS SHE DID NOT EAT HER DINNER AND FELT LIKE SHE COULD NOT EAT ANYTHING. PT REQUESTS SHOWER AND DENIES ANY OTHER ASSISTANCE. DAUGHTER AT BEDSIDE.
[2017-10-09 00:16] VITALS: BP 161/67
--- NOTE | 2017-10-09 00:35 | NUR ---
PT.REQUESTED TO GET A SHOWER, DRESSING COVERED TO FEET BILATERALLY AND PT.INSTRUCTED TO NOT GET WATER DIRECTLY ON FEET AND IV SITE ALSO COVERED. AIDE IS IN WITH PT. ASSISTING.
--- NOTE | 2017-10-09 01:15 | NUR ---
PT.CALLED TO REPORT THAT SHE HAS STOOL AVAILABLE FOR SAMPLE REQUESTED. SAMPLE COLLECTED AND SENT TO LAB FOR ANALYSIS. STOOL WAS IN HAT IN TOILET, STOOL APPEARED BROWN AND APPEARED TO HAVE VISIBLE STREAKS OF BLOOD IN IT.
[2017-10-09 04:00] VITALS: BP 158/85
--- NOTE | 2017-10-09 04:35 | NUR ---
PT.IS IN BED SLEEPING AT THIS TIME, AWOKE FOR V/S ASSESSMENT, DENIES ANY NEEDS AT THIS TIME, CALL LIGHT AT SIDE.
[2017-10-09 05:20] LABS: HEMATOCRIT 26.9 % (37.0-47.0); HEMOGLOBIN 8.4 g/dl (12.0-16.0); IMMATURE GRANULOCYTES 2.9 % (0.0-1.0); MEAN CELL VOLUME 87.6 fL CALC (80.0-100.0); MEAN CORPUSCULAR HGB 27.4 pG CALC (26.0-32.0); MEAN CORPUSCULAR HGB CONC 31.2 g/L CALC (32.0-36.0); NEUT# 9.85 thou/uL (2.00-7.15); RED BLOOD COUNT 3.07 mill/uL (4.20-5.60); RED CELL DISTRI WIDTH 15.3 % (11.5-15.5)
[2017-10-09 05:46] LABS: ALBUMIN 2.6 g/dL (3.2-5.0); BILIRUBIN, TOTAL 0.2 mg/dL (0.0-1.4); CREATININE 1.5 mg/dL (0.5-1.0); TOTAL PROTEIN 6.3 g/dL (6.3-8.2)
--- NOTE | 2017-10-09 07:00 | NUR ---
BEDSIDE REPORT RECEIVED BY CRISTINA. PT IS RESTINGIN BED AND DENIES NEEDS AT THIS TIME. CALL LIGHT IN REACH.
--- NOTE | 2017-10-09 07:33 | NUR ---
MEDICATED PT WITH PERCOCET SEE EMAR.
[2017-10-09 07:37] VITALS: BP 111/52
--- NOTE | 2017-10-09 08:00 | NUR ---
ASSESSMENT DONE. PT HAS A PRODUCTIVE COUGH. NS INFUSING WELL. DRESSINGS IN BOTH FEET CDI. SAFETY PRECAUTIONS REINFORCED AND CALL LIGHT IN REACH.
[2017-10-09 09:55] VITALS: BP 163/69
--- NOTE | 2017-10-09 11:51 | NUR ---
Pt seen this at Approx 930 for treatment. She was on commode with unlocked w/c next to her. She transferred over to w/c indep with vc and physical cue to lock brakes. Attempted transfer into bed with chair perpendicular to bed for non wt bearing transfer, she was unable to push up the height distance of chair to bed. She transferred to bed with SBA/and locking of brakes back to bed with some wt bearing on heel of foot. Written ex given to pt and blue t band for UE ex, Ankle DF/PF, quad sets/glut sets instructed. Will attempt sliding board transfer next visit. Pt non complaint with NWB status.
--- NOTE | 2017-10-09 12:00 | NUR ---
PT IS RESTING IN BED WITH NO S/S OF DISTRESS NOTED. PT DENIES NEEDS AT THIS TIME. CALL LIGHT IN REACH.
--- NOTE | 2017-10-09 12:00 | NUR ---
PT IS EATING HIS LUNCH WITH NO S/S OF DISTRESS NOTED. PT DENIES NEEDS AT THIS TIME. CALL LIGHT IN REACH.
--- NOTE | 2017-10-09 12:51 | NUR ---
Pt stated she needs a Cardiac US done. Transfer training completed this pm with use of sliding board. Pt needed instruction and min assist use sliding board to get OOB to w/c and was not safe. She was able to place board under hip in bed and w/c but unable to scoot across board to return to bed due to height difference in bed to w/c. Pt reminded to do LE ex in bed to prevent decrease in strength. Pt left in bed with call stahl in reach.
--- NOTE | 2017-10-09 13:18 | NUR ---
DR. MORALES AT BEDSIDE TO ASSESS PT AND DO DRESSING CHANGE.
--- NOTE | 2017-10-09 14:20 | NUR ---
PT WENT DOWN TO X-RAY VIA WC BY EXPERIMENTAL AIRCRAFT MECHANIC.
[2017-10-09 15:09] VITALS: BP 153/78
--- NOTE | 2017-10-09 16:00 | NUR ---
PT IS SITTING IN HER WHEELCHAIR WITH NO S/S OF DISTRESS NOTED. PT DENIES NEEDS AT THIS TIME. DAUGHTER IN ROOM. CALL LIGHT IN REACH.
--- NOTE | 2017-10-09 19:15 | NUR ---
PATIENT UP IN WHEELCHAIR-FLOOD IN PATIENT ROOM FROM -REPORTED TO [facility]. PATIENT MOVED TO ROOM 290 VIA WHEELCHAIR. IV SITE TO RIGHT HAND INTACT. PATIENT THEN TAKEN TO RADIOLOGY VIA WHEELCHAIR FOR ECHO.
[2017-10-09 20:30] VITALS: BP 151/75
--- NOTE | 2017-10-09 21:30 | NUR ---
PATIENT RETURNED TO ROOM 290 VIA WHEELCHAIR. IV SITE DISLODGE DURING THE ECHO PROCEDURE. MULTIPLE ATTEMPTS MADE TO RE-ESTABLISH NEW IV SITE ACCESS WITHOUT ANY SUCCESS. NSG [employer]ORDS TECHNOLOGY TEACHER NOTIFIED. PATIENT RESTING IN BED AT THIS TIME-ALERT AND ORIENTEDX3. PATIENT WITH YASSINE LE DRESSINGS INTACT-SECURED WITH ETHEL WRAPS. PATIENT CHILDREN VISITING IN ROOM. CALL LIGHT IN REACH. WILL CONT TO MONITOR.
--- NOTE | 2017-10-09 21:45 | NUR ---
BS-140-HS SNACK PROVIDED. LEVEMIR 65UNITS GIVEN ORDERED. ER STAFF MADE MULTIPLE ATTEMPTS TO START NEW IV SITE WITHOUT ANY SUCCESS. PATIENT MEDICATED WITH ROBITUSSIN AC FOR COUGH AND PERCOCET FOR PAIN. NON-PRODUCTIVE COUGH NOTED. PATIENT ASSISTED WITH SHOWER. BOTH LE DRESSINGS WERE COVERED AND SECURED. OOB BQACK TO BED. CALL LIGHT IN REACH. WILL CONT TO MONITOR.
--- NOTE | 2017-10-09 23:30 | NUR ---
UNABLE TO RE-ESTABLISH NEW IV SITE AT THIS TIME. NSG SUP AND MD AWARE. PATIENT RESTING IN BED AT THIS TIME APPEARS SLEEPING. DAUGHTER IN ROOM SLEEPING ON COUCH. COT OFFERED BUT DECLINED. CALL LIGHT IN REACH. WILL CONT TO MONITOR.
[2017-10-10] VITALS (10 sets, daily range): BP systolic 119–168; BP diastolic 49–98
--- NOTE | 2017-10-10 04:30 | NUR ---
NEW IV SITE TO RIGHT HAND STARTED-#20 GAUGE WITH GOOD BLOOD RETURN BY SADE ALEXANDER. IVF NS PATENT AND INFUSING AT 100CC/HR. PATIENT REMAINS NPO FOR OR THIS MORNING. PATIENT C/O SEVERE THROAT PAIN AND MEDICATED WITHPERCOCET 10/325MG PO WITH SIP OF H2O. LITTLE RELIEF OBTAINED. PATIENT STATES THAT SHE DOESN'T WANT THE SURGERY TODAY BECAUSE OF THIS THROAT PAIN WELL COUGH. ALSO C/O OF EARS FEELING "PLUGGED". OR CONSENT WAS SIGNED-BUT AGAIN STATES THAT SHE DOESN'T WANT SURGERY TODAY. NSG SUP NOTIFIED OF PATIENT STATING THAT SHE DOESN"T WANT SURGERY TODAY. REINFORCED WITH PATIENT THE IMPORTANCE OF PROMPT TREATMENT OF BOTH FEET TO PREVENT FURTHER DAMAGE TO BLE. DRESSINGS TO BOTH FEET REMAIN IN PLACE-SECURED WITH ETHEL WRAP. PATIENT SITTING UP IN WHEELCHAIR AT THIS TIME. CALL LIGHT IN REACH. WILL CONT TO MONITOR.
[2017-10-10 05:19] LABS: INFLUENZA A NONE DETECTED (NONE DETECT); INFLUENZA B NONE DETECTED (NONE DETECT)
[2017-10-10 05:41] LABS: HEMOGLOBIN 8.1 g/dl (12.0-16.0); IMMATURE GRANULOCYTES 3.5 % (0.0-1.0); MEAN CELL VOLUME 88.1 fL CALC (80.0-100.0); MEAN CORPUSCULAR HGB 27.5 pG CALC (26.0-32.0); MEAN CORPUSCULAR HGB CONC 31.2 g/L CALC (32.0-36.0); NEUT# 8.7 thou/uL (2.00-7.15); RED BLOOD COUNT 2.95 mill/uL (4.20-5.60); RED CELL DISTRI WIDTH 15.4 % (11.5-15.5)
[2017-10-10 05:52] LABS: CREATININE 1.2 mg/dL (0.5-1.0); MAGNESIUM 1.4 mg/dL (1.6-2.3); POTASSIUM 3.9 mmol/l (3.5-5.1)
--- NOTE | 2017-10-10 05:54 | NUR ---
PATIENT INCONT OF STOOL AGAIN-PATIENT WAS CLEANED UP AND PADS CHANGED. BED ALARM IN PLACE FOR PATIENT SAFETY. CALL LIGHT IN REACH. WILL CONT TO MONITOR.
--- NOTE | 2017-10-10 06:18 | NUR ---
DR. RING NOTIFIED THAT PATIENT IS REFUSING TO HAVE SURGERY THIS MORNING. STATES THAT SHE IS FEELING TOO BADLY. PATIENT HAS BEEN EDUCATED ON THE URGENCY OF GIVING BOTH FEET MEDICAL ATTENTION PLANNED. PATIENT IS ALSO STREP POSITIVE. DR. RODRIGUEZ CALLED AND LEFT VOICE MESSAGE REGUARDING THE SAME. PATIENT IS RESTING IN BED AT THIS TIME. CONSENT HAS BEEN SIGNED. PATIENT IS STILL NPO. AWAITING CALL BACK FROM DR. RODRIGUEZ. ATTEMPTING TO CONTACT OR STAFF WITHOUT ANY SUCCESS. PRE-OP CHECK LIST IN PROGRESS. WILL CONT TO MONITOR.
--- NOTE | 2017-10-10 06:40 | NUR ---
DR RODRIGUEZ RETURNED CALL AND SPOKE WITH PATIENT REGUARDING SURGERY TODAY. PATIENT STATES THAT SHE IS GOING TO GO AHEAD WITH THE SURGERY. PATIENT OOB TO THE BR TO VOID AND CHANGE INTO HOSPITAL GOWN. WILL CONT TO MONITOR.
--- NOTE | 2017-10-10 07:00 | NUR ---
ACCU-CHECK 71-D5W HUNG AND INFUSING AT 100CC/HR AT THIS TIME. PATIENT UP TO THE BR TO VOID. PATIENT CHANGED INTO HOSPITAL GOWN. PATIENT TO OR VIA STRETCHER WITH OR STAFF.
--- NOTE | 2017-10-10 11:00 | NUR ---
PT CAME BACK FROM OR VIA STRETCHER BY CATHERINE MISHRA. PT TRANFERED FROM STRETCHER TO BED WELL. PT DENIES PAIN AT THIS TIME. ASSESSMENT DONE. RESPS EVEN AND UNLABORED. PT HAS A #20LFA THAT APPEARS HEALTHY. BILATERAL DRESSING IN BOTH FEET ARE CDI. ELEVATED FEET AND ICE PACK APPLIED. ENCOURAGE PT TO DO THE INCENTIVE SPIROMETRY. SAFETY PRECAUTIONS REINFORCED AND CALL LIGHT IN REACH.
--- NOTE | 2017-10-10 13:20 | NUR ---
PT WENT DOWN TO X-RAY VIA WC BY BRAN FROM X-RAY FOR HER PICC LINE.
--- NOTE | 2017-10-10 16:00 | NUR ---
PT IS SLEEPING IN BED WITH NO S/S OF DISTRESS NOTED. BOTH LEGS ELEVATE. CALL LIGHT IN REACH.
--- NOTE | 2017-10-10 19:30 | NUR ---
PATIENT UP IN THE WHEELCHAIR AT THIS TIME-ALERT AND ORIENTEDX3. CHILDREN AT BEDSIDE. PATIENT EATING SALAD THAT FAMILY BROUGHT IN FOR DINNER. APPEATITE IS GOOD. PATIENT WITH BLE FOOT DRESSINGS INTACT AND SECURED WITH ETHEL WRAPS. ENCOURAGED PATIENT TO ELEVATED WHEN IN BED. REINFORCED WITH PATIENT NWB STATUS. IVF PATENT AND INFUSING LEFT ARM PICC-SITE APPEARS HEALTHY AT THIS TIME. IVF NS AT 100CC/HR. ENCOURAGED USE OF IS Q1H WHILE AWAKE. DENIES ANY DIFFICULTY WITH URINATION. SAFETY PRECAUTIONS REINFORCED.CALL LIGHT IN REACH. WILL CONT TO MONITOR.
--- NOTE | 2017-10-11 00:36 | NUR ---
PATIENT APPEARS SLEEPING AT THIS TIME POSITIONED ON HER SIDE. IVF PATENT AND INFUSING AT 100CC/HR VIA LEFT ARM PICC. CALL LIGHT IN REACH. WILL CONT TO MONITOR.
[2017-10-11 04:20] VITALS: BP 178/80
--- NOTE | 2017-10-11 05:16 | NUR ---
BS-62. PATIENT WITH SHAKES. SKIN WARM AND DRY-PATIENT TAKING OJ AND ROOPA CRACKERS WITH PEANUT BUTTER-SITTING UP IN WHEELCHAIR-WILL RECHECK IN 20 MINUTES. PATIENT MEDICATED FOR THROAT PAIN WITH PERCOCET 10/325MG PO AND WITH ROBITUSSIN AC FOR COUGH. CALL LIGHT IN REACH. WILL CONT TO MONITOR.
--- NOTE | 2017-10-11 05:38 | NUR ---
BS RECHECK-60. PATIENT IS STILL SHAKEY AND COLD. PROVIDED WITH SNACK. WILL RECHECK BS. PATIENT RESTING IN BED. CALL LIGHT IN REACH. WILL CONT TO MONITOR.
--- NOTE | 2017-10-11 06:17 | NUR ---
BS-77. BP-178/80-MEDICATED WITH LOPRESSOR 50MG PO ORDERED FOR AM DOSE. PATIENT RESTING IN BED. NO COMPLAINTS AT THIS TIME. CALL LIGHT IN REACH. WILL CONT TO MONITOR.
--- NOTE | 2017-10-11 07:00 | NUR ---
RECEIVED BEDSIDE REPORT FROM CECILY ALEXANDER. RESTING IN SUPINE POSITION WITH EYES CLOSED, AWAKENS EASILY. RESPS EVEN AND UNLABORED ON ROOM AIR, SNORING LOUDLY BEFORE AWAKENING. PICC TO VALENTINO INFUSING WITHOUT DIFFICULTY, SITE APPEARS HEALTHY. VOICES NO NEEDS AT THIS TIME. PLAN OF CARE DISCUSSED. SAFETY PRECAUTIONS REINFORCED. BED IN LOWEST POSITION WITH WHEELS LOCKED. CALL LIGHT WITHIN REACH. WILL CONTINUE TO MONITOR.
[2017-10-11 07:43] VITALS: BP 134/42
[2017-10-11 11:26] VITALS: BP 161/83
--- NOTE | 2017-10-11 12:20 | NUR ---
SITTING IN WHEELCHAIR AT BEDSIDE. SINGLE LUMEN PICC TO VALENTINO PATENT, SITE APPEARS HEALTHY. MEDICATED WITH ROBITUSSIN PO FOR C/O IRRITATED THROAT. CALL LIGHT WITHIN REACH. WILL CONTINUE TO MONITOR.
[2017-10-11] MEDS ORDERED: ROCEPHIN 2 GM2 GM IM (12:22)
[2017-10-11] MEDS ORDERED: ASPIRIN ADULT L81 M2 PO (12:22)
[2017-10-11] MEDS ORDERED: VITAMIN D2000 UNI2 PO (12:22)
--- NOTE | 2017-10-11 13:10 | NUR ---
DR RING AT BEDSIDE, NEW ORDERS RECEIVED.
--- NOTE | 2017-10-11 13:30 | NUR ---
PHYSICAL THERAPY AT BEDSIDE.
--- NOTE | 2017-10-11 13:44 | NUR ---
NEW ORDER RECEIVED TO CONTINUE PHYSICAL THERAPY. THE PATIENT WAS SEEN RESTING IN BED. SHOWED GOOD ARM STRENGTH IN PULLING SELF UP TO ASSUME SITTING POSITION. PT THEN TRANSFERRED FROM BED TO CHAIR INDEPENDENTLY BY HOLDING ONTO THE BED AND WHEELCHAIR ARM REST, NWB ON B LE. PT UTILIZED SLIDING BOARD TO TRANSFER FROM WHEELCHAIR TO BED. PT ALSO SHOWED GOOD TRUNK CONTROL FOR SAFE TRANSFERS. REMINDED PT ON WB RESTRICTION ON B LE: NWB. PT NODDED TO SHOW UNDERSTANDING. LEFT PT COMFORTABLY RESTING IN THE BED WITH HOB ELEVATED. CALL TINAJERO WITHIN REACH. NO ADVERSE RXNS NOTED OR REPORTED AT THE END OF TX. FUNCTIONAL ACTIVITY COMPLETED.
[2017-10-11] MEDS ORDERED: CEFTRIAXONE2 GM IV (14:57)
[2017-10-11 16:00] VITALS: BP 172/82
--- NOTE | 2017-10-11 16:31 | NUR ---
SITTING IN WHEELCHAIR AT BEDSIDE. VOICES NO NEEDS. DRESSINGS TO BILAT FEET CDI. ENCOURAGED PT TO CONTINUE NON WEIGHT BEARING, PT VERBALIZED UNDERSTANDING. CALL LIGHT WITHIN REACH. WILL CONTINUE TO MONITOR.
--- NOTE | 2017-10-11 18:18 | NUR ---
Discharge instructions given. Patient verbalizes understanding of same. Discharged in stable condition via Wheelchair to Home with family. All belongings sent with pt.
== END 2017-10-11 18:12 | disposition home or self-care (01) | DRG 623 ==
LOC: ED 12:10 → ED-I 14:08 → ED 15:09 → MS2 15:10
PROVIDERS: Family Medicine; Hospitalist; Nurse Practitioner Family; ADMIT Internal Medicine; ATTEND Internal Medicine
PROC: 0JBR0ZZ Excision of Left Foot Subcutaneous Tissue and Fascia, Open Approach (ICD-10-PCS; principal; 2017-10-05)
PROC: 0H9MXZX Drainage of Right Foot Skin, External Approach, Diagnostic (ICD-10-PCS; 2017-10-05)
PROC: 30233N1 Transfusion of Nonautologous Red Blood Cells into Peripheral Vein, Percutaneous Approach (ICD-10-PCS; 2017-10-08)
PROC: 0J9Q0ZZ Drainage of Right Foot Subcutaneous Tissue and Fascia, Open Approach (ICD-10-PCS; 2017-10-10)
PROC: 0JBR0ZZ Excision of Left Foot Subcutaneous Tissue and Fascia, Open Approach (ICD-10-PCS; 2017-10-10)
PROC: 02HV33Z Insertion of Infusion Device into Superior Vena Cava, Percutaneous Approach (ICD-10-PCS; 2017-10-10)
PROC: B518ZZA Fluoroscopy of Superior Vena Cava, Guidance (ICD-10-PCS; 2017-10-10)
DX: E11.628 Type 2 diabetes mellitus with other skin complications (principal); L02.612 Cutaneous abscess of left foot; M86.9 Osteomyelitis, unspecified; E11.22 Type 2 diabetes mellitus with diabetic chronic kidney disease; E11.42 Type 2 diabetes mellitus with diabetic polyneuropathy; N17.9 Acute kidney failure, unspecified; R78.81 Bacteremia; E11.621 Type 2 diabetes mellitus with foot ulcer; N18.3 Chronic kidney disease, stage 3 (moderate); D62 Acute posthemorrhagic anemia; E11.51 Type 2 diabetes mellitus with diabetic peripheral angiopathy without gangrene; L97.419 Non-pressure chronic ulcer of right heel and midfoot with unspecified severity; L97.429 Non-pressure chronic ulcer of left heel and midfoot with unspecified severity; L03.115 Cellulitis of right lower limb; L02.611 Cutaneous abscess of right foot; L03.116 Cellulitis of left lower limb; Z68.41 Body mass index [BMI] 40.0-44.9, adult; E11.69 Type 2 diabetes mellitus with other specified complication; E11.65 Type 2 diabetes mellitus with hyperglycemia; I10 Essential (primary) hypertension; F41.9 Anxiety disorder, unspecified; I12.9 Hypertensive chronic kidney disease with stage 1 through stage 4 chronic kidney disease, or unspecified chronic kidney disease; F43.10 Post-traumatic stress disorder, unspecified; E83.42 Hypomagnesemia; E86.0 Dehydration; N76.0 Acute vaginitis; E55.9 Vitamin D deficiency, unspecified; J02.0 Streptococcal pharyngitis; F32.9 Major depressive disorder, single episode, unspecified; B95.1 Streptococcus, group B, as the cause of diseases classified elsewhere; S90.414A Abrasion, right lesser toe(s), initial encounter; X58.XXXA Exposure to other specified factors, initial encounter; Z89.411 Acquired absence of right great toe; Z89.421 Acquired absence of other right toe(s); Z89.412 Acquired absence of left great toe; Z79.4 Long term (current) use of insulin; Z22.322 Carrier or suspected carrier of Methicillin resistant Staphylococcus aureus
CPT/HCPCS: J0692; J3370; P9016

== ENCOUNTER 2017-11-18 09:39 | Emergency (ER) | payer OTHER ==
[~2017-11-18] VITALS: Ht 160 cm; Wt 113.0 kg
[~2017-11-18 09:39] MED LIST changes: +ASPIRIN ADULT L81 M2 PO; +CEFTRIAXONE2 GM IV; +LASIX20 MG PO; +METOPROL TAR25 MG PO; +ROCEPHIN 2 GM2 GM IM; +TIMOLOL 0.5%5 ML OU; +VITAMIN D2000 UNI2 PO
[2017-11-18] MEDS ORDERED: VISTARIL25 MG PO (10:15)
[2017-11-18] MEDS ORDERED: DELTASONE20 MG PO (10:15)
[2017-11-18 10:30] VITALS: BP 155/75
== END 2017-11-18 10:32 | disposition home or self-care (01) | DRG 607 ==
LOC: ED 09:39
DX: L30.9 Dermatitis, unspecified (principal); E11.22 Type 2 diabetes mellitus with diabetic chronic kidney disease; N18.3 Chronic kidney disease, stage 3 (moderate); L40.50 Arthropathic psoriasis, unspecified; F41.9 Anxiety disorder, unspecified; I12.9 Hypertensive chronic kidney disease with stage 1 through stage 4 chronic kidney disease, or unspecified chronic kidney disease; F43.10 Post-traumatic stress disorder, unspecified

== ENCOUNTER 2017-11-21 09:01 | Emergency (ER) | payer OTHER ==
[~2017-11-21] VITALS: Ht 160 cm; Wt 100.0 kg
[~2017-11-21 09:01] MED LIST changes: +DELTASONE20 MG PO; +VISTARIL25 MG PO
[2017-11-21] MEDS ORDERED: PEPCID20 MG PO (10:57)
[2017-11-21] MEDS ORDERED: BENADRYL 50MG C50 MG PO (10:57)
[2017-11-21 11:22] VITALS: BP 151/97
== END 2017-11-21 11:22 | disposition home or self-care (01) | DRG 813 ==
LOC: ED 09:01
DX: D69.0 Allergic purpura (principal); E11.22 Type 2 diabetes mellitus with diabetic chronic kidney disease; N18.3 Chronic kidney disease, stage 3 (moderate); T36.8X5A Adverse effect of other systemic antibiotics, initial encounter; L40.50 Arthropathic psoriasis, unspecified; F41.9 Anxiety disorder, unspecified; F43.10 Post-traumatic stress disorder, unspecified; I12.9 Hypertensive chronic kidney disease with stage 1 through stage 4 chronic kidney disease, or unspecified chronic kidney disease

== ENCOUNTER 2018-04-24 20:52 | Emergency (ER) | payer OTHER ==
[~2018-04-24] VITALS: Ht 160 cm; Wt 11.0 kg
[~2018-04-24 20:52] MED LIST changes: +BENADRYL 50MG C50 MG PO; +PEPCID20 MG PO
[2018-04-24] MEDS ORDERED: LISINOPRIL10 MG PO (21:04)
[2018-04-24 21:47] LABS: HEMATOCRIT 31.5 % (37.0-47.0); HEMOGLOBIN 10.2 g/dl (12.0-16.0); IMMATURE GRANULOCYTES 0.7 % (0.0-5.0); MEAN CELL VOLUME 87.7 fL CALC (80.0-100.0); MEAN CORPUSCULAR HGB 28.4 pG CALC (26.0-32.0); MEAN CORPUSCULAR HGB CONC 32.4 g/L CALC (32.0-36.0); NEUT# 6.97 thou/uL (2.00-7.15); RED BLOOD COUNT 3.59 mill/uL (4.20-5.60); RED CELL DISTRI WIDTH 13.5 % (11.5-15.5); URINE BILIRUBIN - DIPSTICK NEGATIVE (NEGATIVE); URINE BLOOD DIPSTICK TRACE-INTACT (NEGATIVE); URINE COLOR YELLOW; URINE GLUCOSE - DIPSTICK NEGATIVE (NEGATIVE); URINE KETONE NEGATIVE (NEGATIVE); URINE LEUK ESTERASE TRACE (NEGATIVE); URINE NITRITE - DIPSTICK NEGATIVE (Negative); URINE PROTEIN - DIPSTICK 100 mg/dL (NEG-TRACE); URINE SPECIFIC GRAVITY 1.025; URINE UROBILINOGEN - DIPSTICK 0.2 E.U./dL (0.2)
[2018-04-24 22:02] LABS: ALBUMIN 3.9 g/dL (3.2-5.0); BILIRUBIN, TOTAL 0.2 mg/dL (0.0-1.4); CREATININE 1.4 mg/dL (0.5-1.0); POTASSIUM 4.7 mmol/l (3.5-5.1); TOTAL PROTEIN 7.2 g/dL (6.3-8.2)
[2018-04-24 22:07] LABS: URINE CLARITY TURBID
[2018-04-24 22:16] LABS: URINE WBC 20-50 WBC/hpf (0-5)
[2018-04-24 22:17] LABS: URINE BACTERIA MODERATE hpf; URINE EPITHELIAL CELLS RARE EPI/hpf (0-FEW)
[2018-04-24] MEDS ORDERED: CIPROFLOXACN500 MG PO (22:20)
[2018-04-24 22:33] VITALS: BP 161/82
== END 2018-04-24 22:33 | disposition home or self-care (01) ==
LOC: ED 20:52
PROVIDERS: Emergency Medicine
DX: N39.0 Urinary tract infection, site not specified (principal); B96.1 Klebsiella pneumoniae [K. pneumoniae] as the cause of diseases classified elsewhere; Z16.12 Extended spectrum beta lactamase (ESBL) resistance; R30.0 Dysuria

== ENCOUNTER 2018-09-10 14:35 | Observation (INO) | payer OTHER ==
[~2018-09-10] VITALS: Ht 160 cm; Wt 116.0 kg
[~2018-09-10 14:35] MED LIST changes: +LISINOPRIL10 MG PO
--- NOTE | 2018-09-10 14:55 | NUR ---
PATIENT AMBULATES TO ROOM WITH STEADY GAIT. SENT TO BATHROOM TO ATTEMPT AND COLLECT URINE SAMPLE.
--- NOTE | 2018-09-10 15:38 | NUR ---
PT STATES THAT SHE HAS HAD A OPEN SORE ON HER RIGHT THUMB FOR ABOUT 6 MONTHS. STATES YESTERDAY THE HAND BECAME SWOLLEN AND PAIN WITH DISCHARGE FROM THE WOUND. HAND IS WARM TO THE TOUCH. PT IS AOX4. STATES ALSO HAVING LOWER PUBIC PAIN- WITH UTI SYMPTOMS.
[2018-09-10 16:07] LABS: HEMATOCRIT 33.5 % (37.0-47.0); HEMOGLOBIN 10.9 g/dl (12.0-16.0); IMMATURE GRANULOCYTES 0.5 % (0.0-5.0); MEAN CELL VOLUME 88.2 fL CALC (80.0-100.0); MEAN CORPUSCULAR HGB 28.7 pG CALC (26.0-32.0); MEAN CORPUSCULAR HGB CONC 32.5 g/L CALC (32.0-36.0); NEUT# 9.33 thou/uL (2.00-7.15); RED BLOOD COUNT 3.8 mill/uL (4.20-5.60); RED CELL DISTRI WIDTH 13.6 % (11.5-15.5)
[2018-09-10 16:16] LABS: ALBUMIN 4.3 g/dL (3.2-5.0); BILIRUBIN, TOTAL 0.6 mg/dL (0.0-1.4); CREATININE 1.6 mg/dL (0.5-1.0); POTASSIUM 4.5 mmol/l (3.5-5.1)
--- NOTE | 2018-09-10 16:38 | NUR ---
PT RESTING ON STRETCHER, IV PATENT WITH ANTIBIOTICS RUNNING
--- NOTE | 2018-09-10 17:28 | NUR ---
MD AT BEDSIDE TO DISCUSS FINDINGS AND ADMISSION
--- NOTE | 2018-09-10 18:28 | NUR ---
PT RESTING ON STRETCHER, AWAITING ADMISSION
[2018-09-10] MEDS ORDERED: LIPITOR20 MG PO (19:30)
--- NOTE | 2018-09-10 19:32 | NUR ---
REPORT CALLED TO HANNAH RN- ACCEPTED PT
[2018-09-10 19:50] VITALS: BP 139/81
--- NOTE | 2018-09-10 19:51 | NUR ---
Admission Note Report Given to: HANNAH ALEXANDER Transported by: Wheelchair X Stretcher Transported with: X Nurse Transporter X Patent IV O2 Hide Buyer [place] [facility] [place]
--- NOTE | 2018-09-10 19:52 | NUR ---
Received report from ER nurse Aquilino, patient was transported via bed, patient assisted to bed, educated medical reception light system, denies pain or discomfort at this time.
--- NOTE | 2018-09-10 20:30 | NUR ---
Patient resting in bed, with saline lock on rt hand 22 g, patent, alert and oriented able to make needs known, with steady gait, on contact isolation r/t hx Mrsa on 10/04/17 amd ESBL 04/24/18. Complained of pain and burning upon urination, edema on rt hand +1 pitting edema, with open wound on rt thumb crease scant amount of yellow drainaige, photo obtained, with scabbed on rt pointer crease. Call light at reach.Will inform pcp of the pain and burning during voiding.
--- NOTE | 2018-09-11 | NUR ---
PATIENT SLEEPING IN BED AT THIS TIME, NO DISCOMFORTS NOTED, CALL LIGHT AT REACH
--- NOTE | 2018-09-11 02:31 | NUR ---
Called lab spoke to Reese, patient urine culture submitted at 09/10/18 3pm.
[2018-09-11 04:09] VITALS: BP 91/49
--- NOTE | 2018-09-11 04:10 | NUR ---
Patient resting in bed, eyes closed, no discomforts noted at this time, call light within reach
[2018-09-11 04:57] VITALS: BP 110/58
[2018-09-11 05:40] LABS: CHOLESTEROL HDL RATIO 3.2 (<4.4 (CALC))
--- NOTE | 2018-09-11 07:05 | NUR ---
REPORT RECEIVED FROM CATHERINE LANTIGUA;PT APPEARS TO BE SLEEPING AT THIS TIME IN SUPINE POSITION;RESPIRATIONS APPEAR EVEN AND UNLABORED ON RA;NO S/S OF DISTRESS NOTED;IV FLUIDS INFUSING WELL TO LEFT HAND;CONTACT PRECAUTIONS IN PLACE;BED IN THE LOWEST POSITION WITH CALL LIGHT IN REACH;WILL CONTINUE TO MONITOR
--- NOTE | 2018-09-11 07:50 | NUR ---
PT RESTING IN SEMI FOWLERS POSITION;VS OBTAINED AND ASSESSMENT COMPLETED;PT ALERT AND ORIENTED X3;PT DENIES ANY CURRENT PAIN OR DISCOMFORTS,PAIN SCALE AND REPORTING EDUCATED;RESPIRATIONS SHALLOW ON RA,DIMINISHED LUNG SOUNDS;ABDOMEN DISTENDED/SOFT ON PALPATION AND ACTIVE IN ALL 4 QUADRANTS;WEAK PEDAL PULSES;MULTIPLE AMPUTATIONS NOTED TO TOES ON BOTH FEET;RIGHT ARM REDDENED,RIGHT HAND ABCESS NOTED;ACCUCHECK 181, PT COVERED WITH NOVOLOG WITH SLIDING SCALE NOVOLOG;#22G TO LEFT HAND INFUSING NS @ 100ML/HR,SITE APPEARS HEALTHY;CONTACT PRECAUTIONS IN PLACE;PT DENIES ANY ADDITIONAL NEEDS AT THIS TIME AND IS ENCOURAGED TO CALL FOR ASSISTANCE IF NEEDED;CALL LIGHT IN REACH;WILL CONTINUE TO MONITOR
[2018-09-11 07:56] VITALS: BP 107/42
--- NOTE | 2018-09-11 11:50 | NUR ---
PT RESTING IN BED WITH FAMILY AT BEDSIDE;RESPIRATIONS EVEN AND UNLABORED ON RA;PT DENIES ANY CURRENT PAIN OR DISCOMFORTS;#22G TO LEFT HAND FOUND DISLODGED WITH CATHETER INTACT,NEW #22G TO LEFT UPPER ARM STARTED ON 1ST ATTEMPT BY THIS WRITTER AND PT TOLERATED WELL;NS RE-STARTED AT 100ML/HR;ACCUCHECK 252, PT COVERED WITH SLIDING SCALE PER ORDER;PT DENIES ANY ADDITIONAL NEEDS AT THIS TIME AND IS ENCOURAGED TO CALL FOR ASSISTANCE IF NEEDED;CALL LIGHT IN REACH;WILL CONTINUE TO MONITOR
--- NOTE | 2018-09-11 13:40 | NUR ---
AT BEDSIDE DISCUSSING POC INCLUDING DISCHARGE HOME.
[2018-09-11 15:28] VITALS: BP 133/74
--- NOTE | 2018-09-11 15:30 | NUR ---
PT RESTING IN SEMI FOWLERS POSITION;RESPIRATIONS EVEN AND UNLABORED ON RA;PT DENIES ANY CURRENT PAIN OR NEEDS;IV SITE TO ELAYNE REMAINS PATENT;AWAITING DISCHARGE ORDERS AT THIS TIME;CALL LIGHT IN REACH;WILL CONTINUE TO MONITOR
--- NOTE | 2018-09-11 15:35 | NUR ---
SPOKE WITH MICHAEL MAGALLON [facility]. [facility] TO CALL PT AND SET UP AN APPT FOR FOLLOW UP OF RIGHT HAND.
[2018-09-11] MEDS ORDERED: KEFLEX500 MG PO (15:50)
--- NOTE | 2018-09-11 17:02 | NUR ---
ALL DISCHARGE INSTRUCTIONS PROVIDED AT THIS TIME;PT ENCOURAGED TO FOLLOW UP WITH [facility] AND EARTH SCIENCE PROFESSOR RX FROM [facility];ALL QUESTIONS ANSWERED;IV SITE REMOVED WITH CATHETER INTACT;PT DENIES ANY ADDITIONAL NEEDS;WHEELCHAIR TO BE PROVIDED FOR DISCHARGE HOME.
--- NOTE | 2018-09-11 17:10 | NUR ---
Discharge instructions given. Patient verbalizes understanding of same. Discharged in stable condition via Wheelchair to Home with family. All belongings sent with pt. Pt transported to lobby via wheelchair in stable condition accompanied by this writter and family.
== END 2018-09-11 17:14 | disposition home or self-care (01) ==
LOC: ED 14:35 → ED-I 17:20 → ED 17:37 → MS2 17:38
PROVIDERS: Emergency Medicine; ADMIT Internal Medicine; ATTEND Internal Medicine Nephrology
DX: L98.499 Non-pressure chronic ulcer of skin of other sites with unspecified severity (principal); E11.622 Type 2 diabetes mellitus with other skin ulcer; L03.011 Cellulitis of right finger; N39.0 Urinary tract infection, site not specified; I12.9 Hypertensive chronic kidney disease with stage 1 through stage 4 chronic kidney disease, or unspecified chronic kidney disease; E11.22 Type 2 diabetes mellitus with diabetic chronic kidney disease; N18.3 Chronic kidney disease, stage 3 (moderate); E11.42 Type 2 diabetes mellitus with diabetic polyneuropathy; L40.50 Arthropathic psoriasis, unspecified; F43.10 Post-traumatic stress disorder, unspecified; E55.9 Vitamin D deficiency, unspecified; M19.90 Unspecified osteoarthritis, unspecified site; F41.1 Generalized anxiety disorder; F32.9 Major depressive disorder, single episode, unspecified; B96.89 Other specified bacterial agents as the cause of diseases classified elsewhere; B95.1 Streptococcus, group B, as the cause of diseases classified elsewhere; Z79.4 Long term (current) use of insulin; Z89.412 Acquired absence of left great toe; Z89.411 Acquired absence of right great toe
CPT/HCPCS: G0378; J0878

== ENCOUNTER 2019-03-07 13:38 | Emergency (ER) | payer OTHER ==
[~2019-03-07] VITALS: Ht 160 cm; Wt 115.4 kg
[~2019-03-07 13:38] MED LIST changes: +KEFLEX500 MG PO; +LIPITOR20 MG PO
[2019-03-07 14:27] LABS: HEMATOCRIT 31.8 % (37.0-47.0); HEMOGLOBIN 10.6 g/dl (12.0-16.0); IMMATURE GRANULOCYTES 0.7 % (0.0-5.0); MEAN CELL VOLUME 84.4 fL CALC (80.0-100.0); MEAN CORPUSCULAR HGB 28.1 pG CALC (26.0-32.0); MEAN CORPUSCULAR HGB CONC 33.3 g/L CALC (32.0-36.0); NEUT# 11.76 thou/uL (2.00-7.15); RED BLOOD COUNT 3.77 mill/uL (4.20-5.60); RED CELL DISTRI WIDTH 13.9 % (11.5-15.5)
[2019-03-07 14:44] LABS: CREATININE 1.4 mg/dL (0.5-1.0); POTASSIUM 4.6 mmol/l (3.5-5.1)
[2019-03-07 16:17] VITALS: BP 177/80
== END 2019-03-07 16:18 ==
LOC: ED 13:38
PROVIDERS: Family Medicine
DX: L03.011 Cellulitis of right finger (principal); E11.42 Type 2 diabetes mellitus with diabetic polyneuropathy; I10 Essential (primary) hypertension; Z88.1 Allergy status to other antibiotic agents; Z79.4 Long term (current) use of insulin
CPT/HCPCS: J2020

== ENCOUNTER 2019-04-17 21:08 | Emergency (ER) | payer OTHER ==
[~2019-04-17] VITALS: Ht 160 cm; Wt 118.0 kg
[2019-04-17] MEDS ORDERED: BACTRIM DS1 TAB PO (21:36)
[2019-04-17 22:04] VITALS: BP 152/70
== END 2019-04-17 22:03 | disposition home or self-care (01) ==
LOC: ED 21:08
DX: L03.113 Cellulitis of right upper limb (principal); T23.021A Burn of unspecified degree of single right finger (nail) except thumb, initial encounter; T79.8XXA Other early complications of trauma, initial encounter; E11.42 Type 2 diabetes mellitus with diabetic polyneuropathy; I10 Essential (primary) hypertension; X08.8XXA Exposure to other specified smoke, fire and flames, initial encounter; Z89.021 Acquired absence of right finger(s); Z79.4 Long term (current) use of insulin

== ENCOUNTER 2019-04-30 20:31 | Emergency (ER) | payer OTHER ==
[~2019-04-30] VITALS: Ht 160 cm; Wt 100.0 kg
[2019-04-30 22:08] LABS: HEMATOCRIT 30.5 % (37.0-47.0); IMMATURE GRANULOCYTES 0.9 % (0.0-5.0); MEAN CELL VOLUME 86.2 fL CALC (80.0-100.0); MEAN CORPUSCULAR HGB 28.2 pG CALC (26.0-32.0); MEAN CORPUSCULAR HGB CONC 32.8 g/L CALC (32.0-36.0); NEUT# 4.6 thou/uL (2.00-7.15); RED BLOOD COUNT 3.54 mill/uL (4.20-5.60)
[2019-04-30 22:33] LABS: ALBUMIN 3.7 g/dL (3.2-5.0); CREATININE 1.7 mg/dL (0.5-1.0); POTASSIUM 4.5 mmol/l (3.5-5.1); TOTAL PROTEIN 7.2 g/dL (6.3-8.2)
[2019-04-30 22:36] LABS: BILIRUBIN, TOTAL 0.2 mg/dL (0.0-1.4)
[2019-04-30] MEDS ORDERED: CLINDAMYCIN300 M1 PO (22:50)
[2019-04-30 23:00] VITALS: BP 123/86
[2019-04-30] MEDS ORDERED: ULTRAM50 MG PO (23:00)
== END 2019-04-30 23:00 | disposition home or self-care (01) ==
LOC: ED 20:31
DX: T87.42 Infection of amputation stump, left upper extremity (principal); L03.011 Cellulitis of right finger; E11.42 Type 2 diabetes mellitus with diabetic polyneuropathy; I10 Essential (primary) hypertension; Y83.6 Removal of other organ (partial) (total) as the cause of abnormal reaction of the patient, or of later complication, without mention of misadventure at the time of the procedure; Z89.021 Acquired absence of right finger(s); Z79.4 Long term (current) use of insulin

== ENCOUNTER 2019-05-16 | Emergency (ER) | payer OTHER ==
[~2019-05-16] MED LIST changes: +CLINDAMYCIN300 M1 PO
== END 2019-05-17 00:09 | disposition home or self-care (01) ==
DX: S91.114A Laceration without foreign body of right lesser toe(s) without damage to nail, initial encounter (principal); E11.9 Type 2 diabetes mellitus without complications

== ENCOUNTER 2019-06-08 06:46 | Emergency (ER) | payer OTHER ==
[~2019-06-08] VITALS: Ht 160 cm; Wt 117.0 kg
[2019-06-08] MEDS ORDERED: HUMALOG100 UNIT/M SC ×2 (07:28)
[2019-06-08] MEDS ORDERED: METOPROL TAR25 MG PO (07:30)
[2019-06-08] MEDS ORDERED: LISINOPRIL20 MG PO (07:30)
[2019-06-08 07:35] LABS: HEMATOCRIT 33.1 % (37.0-47.0); HEMOGLOBIN 10.7 g/dl (12.0-16.0); IMMATURE GRANULOCYTES 0.5 % (0.0-5.0); MEAN CORPUSCULAR HGB 27.8 pG CALC (26.0-32.0); MEAN CORPUSCULAR HGB CONC 32.3 g/L CALC (32.0-36.0); NEUT# 7.41 thou/uL (2.00-7.15); RED BLOOD COUNT 3.85 mill/uL (4.20-5.60); RED CELL DISTRI WIDTH 13.9 % (11.5-15.5)
[2019-06-08 08:27] LABS: BILIRUBIN, TOTAL 0.4 mg/dL (0.0-1.4); CREATININE 1.4 mg/dL (0.5-1.0); POTASSIUM 4.4 mmol/l (3.5-5.1); TOTAL PROTEIN 7.9 g/dL (6.3-8.2)
[2019-06-08 09:52] VITALS: BP 144/72
--- NOTE | 2019-06-11 12:45 | NUR ---
FAXED BLOOD CULTURE RESULTS TO SHERITA AT [facility] AT [phone].
== END 2019-06-08 09:52 | disposition short-term general hospital (02) ==
LOC: ED 06:46
DX: E11.69 Type 2 diabetes mellitus with other specified complication (principal); M86.9 Osteomyelitis, unspecified; L03.011 Cellulitis of right finger; A40.1 Sepsis due to streptococcus, group B

== ENCOUNTER 2019-06-15 02:44 | Emergency (ER) | payer OTHER ==
[~2019-06-15] VITALS: Ht 160 cm; Wt 116.8 kg
[~2019-06-15 02:44] MED LIST changes: +HUMALOG100 UNIT/M SC
[2019-06-15 02:50] VITALS: BP 176/77
== END 2019-06-15 03:12 | disposition home or self-care (01) ==
LOC: ED 02:44
DX: T82.594A Other mechanical complication of infusion catheter, initial encounter (principal)

== ENCOUNTER 2019-07-04 | Emergency (ER) | payer OTHER ==
[2019-07-04 02:54] LABS: HEMATOCRIT 31.9 % (37.0-47.0); HEMOGLOBIN 10.4 g/dl (12.0-16.0); IMMATURE GRANULOCYTES 0.6 % (0.0-5.0); MEAN CELL VOLUME 84.2 fL CALC (80.0-100.0); MEAN CORPUSCULAR HGB 27.4 pG CALC (26.0-32.0); MEAN CORPUSCULAR HGB CONC 32.6 g/L CALC (32.0-36.0); NEUT# 5.22 thou/uL (2.00-7.15); RED BLOOD COUNT 3.79 mill/uL (4.20-5.60); RED CELL DISTRI WIDTH 13.9 % (11.5-15.5)
[2019-07-04 02:56] LABS: URINE BILIRUBIN - DIPSTICK NEGATIVE (NEGATIVE); URINE BLOOD DIPSTICK SMALL (NEGATIVE); URINE COLOR YELLOW; URINE GLUCOSE - DIPSTICK 250 mg/dL (NEGATIVE); URINE KETONE NEGATIVE (NEGATIVE); URINE LEUK ESTERASE TRACE (NEGATIVE); URINE PROTEIN - DIPSTICK 100 mg/dL (NEG-TRACE); URINE UROBILINOGEN - DIPSTICK 0.2 E.U./dL (0.2)
[2019-07-04 03:03] LABS: URINE NITRITE - DIPSTICK NEGATIVE (Negative)
[2019-07-04 03:04] LABS: URINE BACTERIA MODERATE hpf; URINE EPITHELIAL CELLS FEW EPI/hpf (0-FEW); URINE WBC 50-100 WBC/hpf (0-5); URINE YEAST MODERATE hpf
[2019-07-04 03:15] LABS: ALBUMIN 3.9 g/dL (3.2-5.0); BILIRUBIN, TOTAL 0.3 mg/dL (0.0-1.4); CREATININE 1.5 mg/dL (0.5-1.0); POTASSIUM 4.3 mmol/l (3.5-5.1); TOTAL PROTEIN 7.8 g/dL (6.3-8.2)
[2019-07-04] MEDS ORDERED: PHENERGAN25 MG/TAB PO (03:56)
== END 2019-07-04 04:10 | disposition home or self-care (01) ==
PROVIDERS: Family Medicine
DX: R11.0 Nausea (principal); I12.9 Hypertensive chronic kidney disease with stage 1 through stage 4 chronic kidney disease, or unspecified chronic kidney disease; N18.3 Chronic kidney disease, stage 3 (moderate); E11.22 Type 2 diabetes mellitus with diabetic chronic kidney disease; E11.42 Type 2 diabetes mellitus with diabetic polyneuropathy; Z79.4 Long term (current) use of insulin; R82.71 Bacteriuria

== ENCOUNTER 2019-11-03 | Emergency (ER) | payer OTHER ==
[~2019-11-03] MED LIST changes: +PHENERGAN25 MG/TAB PO
[2019-11-03] MEDS ORDERED: BACTROBAN TOP (17:23)
[2019-11-03] MEDS ORDERED: KEFLEX500 M1 PO (17:23)
== END 2019-11-03 17:52 | disposition home or self-care (01) ==
DX: T23.021A Burn of unspecified degree of single right finger (nail) except thumb, initial encounter (principal); L03.011 Cellulitis of right finger; E11.42 Type 2 diabetes mellitus with diabetic polyneuropathy; I10 Essential (primary) hypertension; X08.8XXA Exposure to other specified smoke, fire and flames, initial encounter; Y93.G3 Activity, cooking and baking; Z79.4 Long term (current) use of insulin

== ENCOUNTER 2020-02-08 02:57 | Emergency (ER) | payer OTHER ==
[~2020-02-08] VITALS: Ht 160 cm; Wt 113.6 kg
[~2020-02-08 02:57] MED LIST changes: +BACTROBAN TOP; +KEFLEX500 M1 PO
[2020-02-08 03:38] LABS: HEMATOCRIT 34.8 % (37.0-47.0); HEMOGLOBIN 11.2 g/dl (12.0-16.0); IMMATURE GRANULOCYTES 0.8 % (0.0-5.0); MEAN CELL VOLUME 84.9 fL CALC (80.0-100.0); MEAN CORPUSCULAR HGB 27.3 pG CALC (26.0-32.0); MEAN CORPUSCULAR HGB CONC 32.2 g/dL CAL (32.0-36.0); NEUT# 6.46 thou/uL (2.00-7.15); RED BLOOD COUNT 4.1 mill/uL (4.20-5.60); RED CELL DISTRI WIDTH 13.2 % (11.5-15.5)
[2020-02-08 03:42] LABS: URINE BILIRUBIN - DIPSTICK NEGATIVE (NEGATIVE); URINE BLOOD DIPSTICK SMALL (NEGATIVE); URINE COLOR YELLOW; URINE GLUCOSE - DIPSTICK NEGATIVE (NEGATIVE); URINE KETONE NEGATIVE (NEGATIVE); URINE LEUK ESTERASE NEGATIVE (NEGATIVE); URINE NITRITE - DIPSTICK NEGATIVE (Negative); URINE PH 5.5 (4.5-8.0); URINE PROTEIN - DIPSTICK 100 mg/dL (NEG-TRACE); URINE SPECIFIC GRAVITY 1.025; URINE UROBILINOGEN - DIPSTICK 0.2 E.U./dL (0.2)
[2020-02-08 03:56] LABS: URINE BACTERIA MANY hpf; URINE SQUAMOUS EPITHELIAL CELL FEW EPI/hpf (0-FEW); URINE WBC 50-100 WBC/hpf (0-5)
[2020-02-08 04:09] LABS: CREATININE 1.5 mg/dL (0.5-1.0); POTASSIUM 4.3 mmol/l (3.5-5.1)
[2020-02-08] MEDS ORDERED: BACTRIM DS1 TAB PO (04:30)
[2020-02-08] MEDS ORDERED: PYRIDIUM200 MG PO (04:30)
[2020-02-08 04:39] VITALS: BP 134/62
--- NOTE | 2020-02-10 09:34 | NUR ---
SPOKE WITH ABBEY AT [facility] REGARDING ESBL K PNEUMONIAE. ASKED HER TO HAVE [facility] logisticsKeny[facility] OR HER NURSE TO CALL ME BACK. FAXED RESULTS TO [phone]. RECOMMENDED INVANZ 1G IV DAILY. WILL FOLLOW UP WITH OFFICE TO CONFIRM RECEIPT.
--- NOTE | 2020-02-10 13:42 | NUR ---
CONFIRMED [facility] RECD FAX WITH RESULTS AND RECOMMENDATION. SEE PREVIOUS NOTE
== END 2020-02-08 04:47 | disposition home or self-care (01) ==
LOC: ED 02:57
PROVIDERS: Family Medicine
DX: N39.0 Urinary tract infection, site not specified (principal); N17.9 Acute kidney failure, unspecified; E11.42 Type 2 diabetes mellitus with diabetic polyneuropathy; E11.22 Type 2 diabetes mellitus with diabetic chronic kidney disease; I12.9 Hypertensive chronic kidney disease with stage 1 through stage 4 chronic kidney disease, or unspecified chronic kidney disease; N18.3 Chronic kidney disease, stage 3 (moderate); B96.1 Klebsiella pneumoniae [K. pneumoniae] as the cause of diseases classified elsewhere; Z16.12 Extended spectrum beta lactamase (ESBL) resistance; Z79.4 Long term (current) use of insulin

== ENCOUNTER 2020-06-07 20:12 | Emergency (ER) | payer OTHER ==
[~2020-06-07] VITALS: Ht 160 cm; Wt 114.0 kg
[~2020-06-07 20:12] MED LIST changes: +PYRIDIUM200 MG PO
[2020-06-07 21:03] LABS: HEMOGLOBIN 9.8 g/dl (12.0-16.0); MEAN CELL VOLUME 89.6 fL CALC (80.0-100.0); MEAN CORPUSCULAR HGB 28.3 pG CALC (26.0-32.0); MEAN CORPUSCULAR HGB CONC 31.6 g/dL CAL (32.0-36.0); NEUT# 5.58 thou/uL (2.00-7.15); RED BLOOD COUNT 3.46 mill/uL (4.20-5.60); RED CELL DISTRI WIDTH 13.2 % (11.5-15.5)
[2020-06-07 21:26] LABS: ALBUMIN 3.7 g/dL (3.2-5.0); BILIRUBIN, TOTAL 0.2 mg/dL (0.0-1.4); CREATININE 1.7 mg/dL (0.5-1.0); POTASSIUM 4.4 mmol/l (3.5-5.1)
[2020-06-07 22:16] VITALS: BP 153/73
== END 2020-06-07 22:16 | disposition home or self-care (01) ==
LOC: ED 20:12
PROVIDERS: Emergency Medicine
DX: L98.499 Non-pressure chronic ulcer of skin of other sites with unspecified severity (principal); T23.021S Burn of unspecified degree of single right finger (nail) except thumb, sequela; E11.42 Type 2 diabetes mellitus with diabetic polyneuropathy; I10 Essential (primary) hypertension; Z79.4 Long term (current) use of insulin; I27.20 Pulmonary hypertension, unspecified; X08.8XXS Exposure to other specified smoke, fire and flames, sequela; Z89.021 Acquired absence of right finger(s)

== ENCOUNTER 2020-07-31 18:50 | Emergency (ER) | payer OTHER ==
[~2020-07-31] VITALS: Ht 160 cm; Wt 113.0 kg
[2020-07-31] MEDS ORDERED: CITALOPRAM40 MG PO (20:15)
[2020-07-31 21:10] VITALS: BP 146/70
== END 2020-07-31 21:10 | disposition home or self-care (01) ==
LOC: ED 18:50
DX: L98.499 Non-pressure chronic ulcer of skin of other sites with unspecified severity (principal); T23.002D Burn of unspecified degree of left hand, unspecified site, subsequent encounter; T23.001D Burn of unspecified degree of right hand, unspecified site, subsequent encounter; T79.9XXD Unspecified early complication of trauma, subsequent encounter; X08.8XXD Exposure to other specified smoke, fire and flames, subsequent encounter; E11.42 Type 2 diabetes mellitus with diabetic polyneuropathy; I10 Essential (primary) hypertension; I27.20 Pulmonary hypertension, unspecified; Z79.4 Long term (current) use of insulin

== ENCOUNTER 2020-12-30 00:33 | Emergency (ER) | payer OTHER ==
[~2020-12-30] VITALS: Ht 160 cm; Wt 97.7 kg
[~2020-12-30 00:33] MED LIST changes: +CITALOPRAM40 MG PO; +LANTUS100 UNIT SC; -LANTUS100 UNIT/M SC
[2020-12-30 02:30] VITALS: BP 162/70
[2020-12-30] MEDS ORDERED: TRAZODONE50 MG PO (02:46)
== END 2020-12-30 02:38 | disposition home or self-care (01) ==
LOC: ED 00:33
DX: T38.3X1A Poisoning by insulin and oral hypoglycemic [antidiabetic] drugs, accidental (unintentional), initial encounter (principal); E11.42 Type 2 diabetes mellitus with diabetic polyneuropathy; I10 Essential (primary) hypertension; I27.20 Pulmonary hypertension, unspecified; Z79.4 Long term (current) use of insulin

== ENCOUNTER 2021-03-05 16:34 | Emergency (ER) | payer OTHER ==
[~2021-03-05] VITALS: Ht 160 cm; Wt 115.0 kg
[~2021-03-05 16:34] MED LIST changes: +TRAZODONE50 MG PO
[2021-03-05 17:57] LABS: HEMATOCRIT 31.9 % (37.0-47.0); HEMOGLOBIN 10.2 g/dl (12.0-16.0); IMMATURE GRANULOCYTES 0.5 % (0.0-5.0); MEAN CELL VOLUME 86.2 fL CALC (80.0-100.0); MEAN CORPUSCULAR HGB 27.6 pG CALC (26.0-32.0); NEUT# 5.32 thou/uL (2.00-7.15); RED BLOOD COUNT 3.7 mill/uL (4.20-5.60); RED CELL DISTRI WIDTH 13.6 % (11.5-15.5)
[2021-03-05 18:17] LABS: ALBUMIN 3.8 g/dL (3.2-5.0); BILIRUBIN, TOTAL 0.1 mg/dL (0.0-1.4); CREATININE 1.6 mg/dL (0.5-1.0); POTASSIUM 4.8 mmol/l (3.5-5.1); TOTAL PROTEIN 7.1 g/dL (6.3-8.2)
[2021-03-05 19:08] VITALS: BP 144/62
== END 2021-03-05 19:08 | disposition home or self-care (01) ==
LOC: ED 16:34
PROVIDERS: Emergency Medicine
DX: J02.9 Acute pharyngitis, unspecified (principal); R51.9 Headache, unspecified; R05 Cough; I10 Essential (primary) hypertension; E11.42 Type 2 diabetes mellitus with diabetic polyneuropathy; I25.10 Atherosclerotic heart disease of native coronary artery without angina pectoris; I27.20 Pulmonary hypertension, unspecified; Z79.4 Long term (current) use of insulin; Z20.822 Contact with and (suspected) exposure to COVID-19

== ENCOUNTER 2021-05-17 19:21 | Emergency (ER) | payer OTHER ==
[~2021-05-17] VITALS: Ht 160 cm; Wt 115.0 kg
[2021-05-17] MEDS ORDERED: BACTRIM DS1 TAB PO (19:54)
[2021-05-17 20:00] VITALS: BP 178/76
[2021-05-17] MEDS ORDERED: BUPROPN HCL300 MG PO (20:01)
[2021-05-17] MEDS ORDERED: DULOXETINE HCL60 MG PO (20:02)
[2021-05-17] MEDS ORDERED: TRAZODONE100 MG PO (20:03)
== END 2021-05-17 20:00 | disposition home or self-care (01) ==
LOC: ED 19:21
DX: L03.012 Cellulitis of left finger (principal); L85.3 Xerosis cutis; I10 Essential (primary) hypertension; E11.42 Type 2 diabetes mellitus with diabetic polyneuropathy; I27.20 Pulmonary hypertension, unspecified; Z79.4 Long term (current) use of insulin

== ENCOUNTER 2021-05-31 06:48 | Emergency (ER) | payer OTHER ==
[~2021-05-31] VITALS: Ht 160 cm; Wt 113.6 kg
[~2021-05-31 06:48] MED LIST changes: +BUPROPN HCL300 MG PO; +DULOXETINE HCL60 MG PO; +TRAZODONE100 MG PO
[2021-05-31 08:18] LABS: HEMATOCRIT 32.7 % (37.0-47.0); HEMOGLOBIN 10.3 g/dl (12.0-16.0); IMMATURE GRANULOCYTES 0.5 % (0.0-5.0); MEAN CELL VOLUME 88.6 fL CALC (80.0-100.0); MEAN CORPUSCULAR HGB 27.9 pG CALC (26.0-32.0); MEAN CORPUSCULAR HGB CONC 31.5 g/dL CAL (32.0-36.0); NEUT# 5.4 thou/uL (2.00-7.15); RED BLOOD COUNT 3.69 mill/uL (4.20-5.60); RED CELL DISTRI WIDTH 13.6 % (11.5-15.5)
[2021-05-31 08:33] LABS: ALBUMIN 2.7 g/dL (3.2-5.0); BILIRUBIN, TOTAL 0.4 mg/dL (0.0-1.4); CREATININE 1.4 mg/dL (0.5-1.0); POTASSIUM 3.9 mmol/l (3.5-5.1); TOTAL PROTEIN 5.7 g/dL (6.3-8.2)
[2021-05-31 11:35] LABS: URINE BILIRUBIN - DIPSTICK NEGATIVE (NEGATIVE); URINE BLOOD DIPSTICK SMALL (NEGATIVE); URINE COLOR YELLOW; URINE GLUCOSE - DIPSTICK 250 mg/dL (NEGATIVE); URINE KETONE NEGATIVE (NEGATIVE); URINE LEUK ESTERASE NEGATIVE (NEGATIVE); URINE PH 5.5 (4.5-8.0); URINE PROTEIN - DIPSTICK 100 mg/dL (NEG-TRACE); URINE SPECIFIC GRAVITY 1.025; URINE UROBILINOGEN - DIPSTICK 0.2 E.U./dL (0.2)
[2021-05-31 11:36] LABS: URINE NITRITE - DIPSTICK NEGATIVE (Negative)
[2021-05-31 11:43] LABS: URINE BACTERIA MODERATE hpf; URINE RENAL EPITHELIAL CELLS RARE hpf; URINE SQUAMOUS EPITHELIAL CELL FEW EPI/hpf (0-FEW)
[2021-05-31] MEDS ORDERED: TORADOL PO (11:50)
[2021-05-31] MEDS ORDERED: TAMSULOSIN0.4 MG PO (11:50)
[2021-05-31] MEDS ORDERED: PERCOCET 5/325M1 TAB PO (11:50)
[2021-05-31 12:15] VITALS: BP 160/74
== END 2021-05-31 12:05 | disposition home or self-care (01) ==
LOC: ED 06:48
PROVIDERS: Emergency Medicine
DX: N13.2 Hydronephrosis with renal and ureteral calculous obstruction (principal); E11.42 Type 2 diabetes mellitus with diabetic polyneuropathy; I10 Essential (primary) hypertension; I27.20 Pulmonary hypertension, unspecified; R82.71 Bacteriuria; Z79.4 Long term (current) use of insulin; Z87.442 Personal history of urinary calculi

== ENCOUNTER 2021-06-03 22:20 | Inpatient (IN) | payer OTHER ==
[~2021-06-03] VITALS: Ht 154.9 cm; Wt 121.0 kg
[~2021-06-03 22:20] MED LIST changes: +TAMSULOSIN0.4 MG PO
[2021-06-03 23:27] LABS: HEMATOCRIT 27.9 % (37.0-47.0); HEMOGLOBIN 9.3 g/dl (12.0-16.0); IMMATURE GRANULOCYTES 0.7 % (0.0-5.0); MEAN CELL VOLUME 83.3 fL CALC (80.0-100.0); MEAN CORPUSCULAR HGB 27.8 pG CALC (26.0-32.0); MEAN CORPUSCULAR HGB CONC 33.3 g/dL CAL (32.0-36.0); NEUT# 2.48 thou/uL (2.00-7.15); RED BLOOD COUNT 3.35 mill/uL (4.20-5.60); RED CELL DISTRI WIDTH 13.9 % (11.5-15.5)
[2021-06-03 23:28] LABS: URINE BLOOD DIPSTICK MODERATE (NEGATIVE); URINE COLOR YELLOW; URINE GLUCOSE - DIPSTICK 250 mg/dL (NEGATIVE); URINE KETONE TRACE mg/dL (NEGATIVE); URINE PH 5.5 (4.5-8.0); URINE PROTEIN - DIPSTICK 100 mg/dL (NEG-TRACE); URINE UROBILINOGEN - DIPSTICK 0.2 E.U./dL (0.2)
[2021-06-03 23:36] LABS: URINE LEUK ESTERASE MODERATE (NEGATIVE); URINE NITRITE - DIPSTICK NEGATIVE (Negative)
[2021-06-03 23:37] LABS: URINE BILIRUBIN - DIPSTICK NEGATIVE (NEGATIVE)
[2021-06-03 23:39] LABS: URINE EPITHELIAL CELLS MODERATE EPI/hpf (0-FEW); URINE RBC 25-50 RBC/hpf (0-5); URINE WBC 50-100 WBC/hpf (0-5)
[2021-06-03 23:40] LABS: URINE BACTERIA MODERATE hpf; URINE YEAST MODERATE hpf
[2021-06-03 23:43] LABS: ALBUMIN 2.7 g/dL (3.2-5.0); POTASSIUM 4.4 mmol/l (3.5-5.1)
[2021-06-03 23:52] LABS: CREATININE 4.6 mg/dL (0.5-1.0)
[2021-06-03 23:53] LABS: BILIRUBIN, TOTAL 0.7 mg/dL (0.0-1.4)
[2021-06-03 23:54] LABS: MYOGLOBIN 160 ng/mL (0 - 62)
[2021-06-04] VITALS (16 sets, daily range): BP systolic 90–126; BP diastolic 46–68
[2021-06-04 01:37] LABS: ACT PARTIAL THROMBO TIME 30.1 SECONDS (20.0-32.5); INTERNATIONAL NORMALIZED RATIO 1.2 RATIO (0.7-1.3); PROTHROMBIN TIME 12.5 SECONDS (9.0-12.5)
[2021-06-04 05:57] LABS: HEMATOCRIT 22.5 % (37.0-47.0); HEMOGLOBIN 7.4 g/dl (12.0-16.0); IMMATURE GRANULOCYTES 3.5 % (0.0-5.0); MEAN CELL VOLUME 84.6 fL CALC (80.0-100.0); MEAN CORPUSCULAR HGB 27.8 pG CALC (26.0-32.0); MEAN CORPUSCULAR HGB CONC 32.9 g/dL CAL (32.0-36.0); NEUT# 8.64 thou/uL (2.00-7.15); RED BLOOD COUNT 2.66 mill/uL (4.20-5.60); RED CELL DISTRI WIDTH 14.2 % (11.5-15.5)
[2021-06-04 06:14] LABS: BILIRUBIN, TOTAL 0.5 mg/dL (0.0-1.4); CREATININE 4.2 mg/dL (0.5-1.0); POTASSIUM 4.1 mmol/l (3.5-5.1); TOTAL PROTEIN 4.9 g/dL (6.3-8.2)
[2021-06-04 06:18] LABS: ALBUMIN 2.1 g/dL (3.2-5.0)
[2021-06-04] MEDS ORDERED: METOPROL TAR25 MG PO (10:07)
[2021-06-04] MEDS ORDERED: FLUCONAZOLE150 MG PO (10:09)
[2021-06-04] MEDS ORDERED: LANTUS SOL100 UNIT/M SC (10:13)
[2021-06-05] VITALS (7 sets, daily range): BP systolic 131–148; BP diastolic 58–87
[2021-06-05 05:11] LABS: HEMATOCRIT 22.4 % (37.0-47.0); HEMOGLOBIN 7.4 g/dl (12.0-16.0); MEAN CELL VOLUME 85.5 fL CALC (80.0-100.0); MEAN CORPUSCULAR HGB 28.2 pG CALC (26.0-32.0); RED BLOOD COUNT 2.62 mill/uL (4.20-5.60); RED CELL DISTRI WIDTH 14.6 % (11.5-15.5)
[2021-06-05 05:31] LABS: ALBUMIN 2.1 g/dL (3.2-5.0); BUN 74 mg/dL (7-17); CARBON DIOXIDE 13 mmol/l (22-30); CHLORIDE 111 mmol/l (95-108); CREATININE 4.6 mg/dL (0.5-1.0); GFR 10 ML/MIN (>=60 (CALC)); GFR FOR AFR.AMER. 12 ML/MIN (>=60 (CALC)); POTASSIUM 4.4 mmol/l (3.5-5.1); SODIUM 135 mmol/l (137-146)
[2021-06-06 04:39] VITALS: BP 157/68
[2021-06-06 05:09] LABS: HEMATOCRIT 23.7 % (37.0-47.0); HEMOGLOBIN 7.9 g/dl (12.0-16.0); MEAN CELL VOLUME 84.3 fL CALC (80.0-100.0); MEAN CORPUSCULAR HGB 28.1 pG CALC (26.0-32.0); MEAN CORPUSCULAR HGB CONC 33.3 g/dL CAL (32.0-36.0); RED BLOOD COUNT 2.81 mill/uL (4.20-5.60); RED CELL DISTRI WIDTH 14.7 % (11.5-15.5)
[2021-06-06 05:18] LABS: ALBUMIN 2.1 g/dL (3.2-5.0); CREATININE 4.1 mg/dL (0.5-1.0); MAGNESIUM 1.7 mg/dL (1.6-2.3)
[2021-06-06 08:04] VITALS: BP 158/74
[2021-06-06 11:11] VITALS: BP 120/65
[2021-06-06 11:13] VITALS: BP 177/68
[2021-06-06 15:24] VITALS: BP 153/71
[2021-06-06 19:11] VITALS: BP 118/58
[2021-06-07] VITALS: BP 128/63
[2021-06-07 04:00] VITALS: BP 145/69
[2021-06-07 05:04] LABS: HEMATOCRIT 21.1 % (37.0-47.0); HEMOGLOBIN 7.1 g/dl (12.0-16.0); MEAN CELL VOLUME 83.1 fL CALC (80.0-100.0); MEAN CORPUSCULAR HGB CONC 33.6 g/dL CAL (32.0-36.0); RED BLOOD COUNT 2.54 mill/uL (4.20-5.60); RED CELL DISTRI WIDTH 14.8 % (11.5-15.5)
[2021-06-07 05:06] LABS: ALBUMIN 2.1 g/dL (3.2-5.0); CREATININE 3.6 mg/dL (0.5-1.0); MAGNESIUM 1.6 mg/dL (1.6-2.3); POTASSIUM 3.9 mmol/l (3.5-5.1)
[2021-06-07 08:01] VITALS: BP 140/85
[2021-06-07 10:54] VITALS: BP 139/88
[2021-06-07 15:45] VITALS: BP 140/77
[2021-06-07 19:00] VITALS: BP 130/56
[2021-06-08] VITALS: BP 137/67
[2021-06-08 04:00] VITALS: BP 132/69
[2021-06-08 05:55] LABS: ALBUMIN 2.2 g/dL (3.2-5.0); CREATININE 3.5 mg/dL (0.5-1.0); POTASSIUM 3.7 mmol/l (3.5-5.1)
[2021-06-08 09:28] LABS: HEMATOCRIT 22.2 % (37.0-47.0); HEMOGLOBIN 7.4 g/dl (12.0-16.0); IMMATURE GRANULOCYTES 3.8 % (0.0-5.0); MEAN CELL VOLUME 84.4 fL CALC (80.0-100.0); MEAN CORPUSCULAR HGB 28.1 pG CALC (26.0-32.0); MEAN CORPUSCULAR HGB CONC 33.3 g/dL CAL (32.0-36.0); NEUT# 13.25 thou/uL (2.00-7.15); RED BLOOD COUNT 2.63 mill/uL (4.20-5.60); RED CELL DISTRI WIDTH 15.1 % (11.5-15.5)
[2021-06-08] MEDS ORDERED: ERTAPENEM1 GM IV (10:45)
[2021-06-08 14:44] LABS: URINE BILIRUBIN - DIPSTICK NEGATIVE (NEGATIVE); URINE BLOOD DIPSTICK LARGE (NEGATIVE); URINE CLARITY HAZY; URINE GLUCOSE - DIPSTICK NEGATIVE (NEGATIVE); URINE KETONE NEGATIVE (NEGATIVE); URINE LEUK ESTERASE TRACE (Negative); URINE NITRITE - DIPSTICK NEGATIVE (Negative); URINE PH 5.5 (4.5-8.0); URINE PROTEIN - DIPSTICK NEGATIVE (NEG-TRACE); URINE UROBILINOGEN - DIPSTICK 0.2 E.U./dL (0.2)
[2021-06-08 14:45] LABS: URINE BACTERIA FEW hpf; URINE COLOR STRAW; URINE EPITHELIAL CELLS FEW EPI/hpf (0-FEW)
[2021-06-08 15:04] VITALS: BP 150/69
[2021-06-08 19:00] VITALS: BP 161/66
[2021-06-09] VITALS (7 sets, daily range): BP systolic 137–160; BP diastolic 51–79
[2021-06-09 05:44] LABS: HEMATOCRIT 21.3 % (37.0-47.0); MEAN CELL VOLUME 86.9 fL CALC (80.0-100.0); MEAN CORPUSCULAR HGB 27.8 pG CALC (26.0-32.0); MEAN CORPUSCULAR HGB CONC 31.9 g/dL CAL (32.0-36.0); RED BLOOD COUNT 2.45 mill/uL (4.20-5.60); RED CELL DISTRI WIDTH 15.2 % (11.5-15.5)
[2021-06-09 06:05] LABS: ALBUMIN 2.2 g/dL (3.2-5.0); CREATININE 3.4 mg/dL (0.5-1.0); MAGNESIUM 1.4 mg/dL (1.6-2.3); POTASSIUM 3.8 mmol/l (3.5-5.1)
[2021-06-09 06:19] LABS: HEMOGLOBIN 6.8 g/dl (12.0-16.0)
[2021-06-09] MEDS ORDERED: HYDROCO/APAP1 TA9 PO (14:31)
== END 2021-06-09 16:34 | disposition home or self-care (01) | DRG 853 ==
LOC: ED 22:20 → ED-I 06-04 00:58 → ED 06-04 01:04 → ICU 06-04 01:05 → MS2 06-05 16:22
PROVIDERS: Emergency Medicine; Internal Medicine; Internal Medicine Nephrology; Nurse Practitioner; ADMIT Hospitalist; ATTEND Hospitalist
PROC: 0T778DZ Dilation of Left Ureter with Intraluminal Device, Via Natural or Artificial Opening Endoscopic (ICD-10-PCS; principal; 2021-06-04)
PROC: BT1FZZZ Fluoroscopy of Left Kidney, Ureter and Bladder (ICD-10-PCS; 2021-06-04)
PROC: 0T2BX0Z Change Drainage Device in Bladder, External Approach (ICD-10-PCS; 2021-06-04)
PROC: 02HV33Z Insertion of Infusion Device into Superior Vena Cava, Percutaneous Approach (ICD-10-PCS; 2021-06-08)
PROC: B518ZZA Fluoroscopy of Superior Vena Cava, Guidance (ICD-10-PCS; 2021-06-08)
PROC: 30243N1 Transfusion of Nonautologous Red Blood Cells into Central Vein, Percutaneous Approach (ICD-10-PCS; 2021-06-09)
DX: A41.59 Other Gram-negative sepsis (principal); N17.0 Acute kidney failure with tubular necrosis; N13.6 Pyonephrosis; E87.2 Acidosis; E87.1 Hypo-osmolality and hyponatremia; Z16.12 Extended spectrum beta lactamase (ESBL) resistance; N25.81 Secondary hyperparathyroidism of renal origin; Z68.43 Body mass index [BMI] 50.0-59.9, adult; B37.0 Candidal stomatitis; R65.20 Severe sepsis without septic shock; E86.0 Dehydration; I12.9 Hypertensive chronic kidney disease with stage 1 through stage 4 chronic kidney disease, or unspecified chronic kidney disease; E11.22 Type 2 diabetes mellitus with diabetic chronic kidney disease; N18.30 Chronic kidney disease, stage 3 unspecified; E11.42 Type 2 diabetes mellitus with diabetic polyneuropathy; E11.65 Type 2 diabetes mellitus with hyperglycemia; D63.1 Anemia in chronic kidney disease; D75.838 Other thrombocytosis; I95.9 Hypotension, unspecified; I27.20 Pulmonary hypertension, unspecified; F32.A Depression, unspecified; F41.9 Anxiety disorder, unspecified; E78.5 Hyperlipidemia, unspecified; E66.01 Morbid (severe) obesity due to excess calories; Z79.4 Long term (current) use of insulin; Z87.442 Personal history of urinary calculi; Z89.029 Acquired absence of unspecified finger(s); Z89.429 Acquired absence of other toe(s), unspecified side; Z20.822 Contact with and (suspected) exposure to COVID-19
CPT/HCPCS: C1769; J0692; J1756; J2185; J3475; P9016; Q3014; Q5106 EC; Q9967

== ENCOUNTER 2021-06-22 16:27 | Emergency (ER) | payer OTHER ==
[~2021-06-22] VITALS: Ht 154.9 cm; Wt 120.0 kg
[~2021-06-22 16:27] MED LIST changes: +ERTAPENEM1 GM IV; +FLUCONAZOLE150 MG PO; +HYDROCO/APAP1 TA9 PO; +LANTUS SOL100 UNIT/M SC
[2021-06-22 17:49] LABS: IMMATURE GRANULOCYTES 0.1 % (0.0-5.0); MEAN CELL VOLUME 89.2 fL CALC (80.0-100.0); MEAN CORPUSCULAR HGB 27.8 pG CALC (26.0-32.0); MEAN CORPUSCULAR HGB CONC 31.2 g/dL CAL (32.0-36.0); NEUT# 3.54 thou/uL (2.00-7.15); RED BLOOD COUNT 3.16 mill/uL (4.20-5.60); RED CELL DISTRI WIDTH 13.5 % (11.5-15.5)
[2021-06-22 17:57] LABS: HEMATOCRIT 28.2 % (37.0-47.0); HEMOGLOBIN 8.8 g/dl (12.0-16.0)
[2021-06-22 18:10] LABS: ALBUMIN 3.4 g/dL (3.2-5.0); BILIRUBIN, TOTAL 0.4 mg/dL (0.0-1.4); CREATININE 4.5 mg/dL (0.5-1.0); POTASSIUM 5.4 mmol/l (3.5-5.1); TOTAL PROTEIN 7.2 g/dL (6.3-8.2)
[2021-06-22 21:04] VITALS: BP 148/60
== END 2021-06-22 21:15 | disposition home or self-care (01) ==
LOC: ED 16:27
PROVIDERS: Family Medicine
DX: N17.9 Acute kidney failure, unspecified (principal); E86.0 Dehydration; E87.5 Hyperkalemia; I12.9 Hypertensive chronic kidney disease with stage 1 through stage 4 chronic kidney disease, or unspecified chronic kidney disease; E11.22 Type 2 diabetes mellitus with diabetic chronic kidney disease; N18.30 Chronic kidney disease, stage 3 unspecified; I27.20 Pulmonary hypertension, unspecified; E11.42 Type 2 diabetes mellitus with diabetic polyneuropathy; E66.01 Morbid (severe) obesity due to excess calories; Z68.43 Body mass index [BMI] 50.0-59.9, adult; Z96.0 Presence of urogenital implants; Z79.4 Long term (current) use of insulin

== ENCOUNTER 2021-07-07 18:16 | Emergency (ER) | payer OTHER ==
[~2021-07-07] VITALS: Ht 160 cm; Wt 113.6 kg
[2021-07-07] MEDS ORDERED: TRAMADOL HCL50 MG PO (20:05)
[2021-07-07 20:22] VITALS: BP 130/70
== END 2021-07-07 20:25 | disposition home or self-care (01) ==
LOC: ED 18:16
DX: N17.9 Acute kidney failure, unspecified (principal); N20.0 Calculus of kidney; I10 Essential (primary) hypertension; I27.20 Pulmonary hypertension, unspecified; E11.42 Type 2 diabetes mellitus with diabetic polyneuropathy; Z79.4 Long term (current) use of insulin; Z96.0 Presence of urogenital implants; Z95.828 Presence of other vascular implants and grafts

== ENCOUNTER 2021-07-09 06:58 | Emergency (ER) | payer OTHER ==
[~2021-07-09] VITALS: Ht 160 cm; Wt 75.0 kg
[~2021-07-09 06:58] MED LIST changes: +TRAMADOL HCL50 MG PO
[2021-07-09] MEDS ORDERED: METOPROL TAR25 MG PO (07:45)
[2021-07-09 08:06] LABS: HEMATOCRIT 30.5 % (37.0-47.0); HEMOGLOBIN 9.7 g/dl (12.0-16.0); IMMATURE GRANULOCYTES 0.5 % (0.0-5.0); MEAN CELL VOLUME 86.9 fL CALC (80.0-100.0); MEAN CORPUSCULAR HGB 27.6 pG CALC (26.0-32.0); MEAN CORPUSCULAR HGB CONC 31.8 g/dL CAL (32.0-36.0); NEUT# 8.9 thou/uL (2.00-7.15); RED BLOOD COUNT 3.51 mill/uL (4.20-5.60); RED CELL DISTRI WIDTH 13.7 % (11.5-15.5)
[2021-07-09 08:26] LABS: BILIRUBIN, TOTAL 0.4 mg/dL (0.0-1.4)
[2021-07-09 08:30] LABS: ALBUMIN 4.1 g/dL (3.2-5.0); CREATININE 3.1 mg/dL (0.5-1.0); POTASSIUM 5.3 mmol/l (3.5-5.1)
[2021-07-09 10:40] LABS: URINE BILIRUBIN - DIPSTICK NEGATIVE (NEGATIVE); URINE BLOOD DIPSTICK SMALL (NEGATIVE); URINE COLOR YELLOW; URINE GLUCOSE - DIPSTICK 250 mg/dL (NEGATIVE); URINE KETONE NEGATIVE (NEGATIVE); URINE LEUK ESTERASE TRACE (NEGATIVE); URINE PROTEIN - DIPSTICK 100 mg/dL (NEG-TRACE); URINE UROBILINOGEN - DIPSTICK 0.2 E.U./dL (0.2)
[2021-07-09 10:45] LABS: URINE NITRITE - DIPSTICK POSITIVE (Negative)
[2021-07-09 10:46] LABS: URINE BACTERIA MODERATE hpf; URINE EPITHELIAL CELLS MODERATE EPI/hpf (0-FEW)
[2021-07-09] MEDS ORDERED: Levaquin PO (11:02)
[2021-07-09] MEDS ORDERED: ZOFRAN4 MG/TAB PO (11:02)
[2021-07-09 11:45] VITALS: BP 168/78
== END 2021-07-09 11:48 | disposition home or self-care (01) ==
LOC: ED 06:58
DX: R10.9 Unspecified abdominal pain (principal); R11.2 Nausea with vomiting, unspecified; N39.0 Urinary tract infection, site not specified; E87.5 Hyperkalemia; N20.0 Calculus of kidney; D64.9 Anemia, unspecified; I10 Essential (primary) hypertension; E11.42 Type 2 diabetes mellitus with diabetic polyneuropathy; E66.01 Morbid (severe) obesity due to excess calories; I27.20 Pulmonary hypertension, unspecified; Z96.0 Presence of urogenital implants; Z79.4 Long term (current) use of insulin; T40.426A Underdosing of tramadol, initial encounter; Z91.128 Patient's intentional underdosing of medication regimen for other reason; Z91.19 Patient's noncompliance with other medical treatment and regimen

== ENCOUNTER 2021-07-15 20:33 | Observation (INO) | payer OTHER ==
[~2021-07-15] VITALS: Ht 160 cm; Wt 80.0 kg
[~2021-07-15 20:33] MED LIST changes: +Levaquin PO; +ZOFRAN4 MG/TAB PO
[2021-07-15 21:17] LABS: URINE BLOOD DIPSTICK TRACE-INTACT (NEGATIVE); URINE COLOR ORANGE; URINE GLUCOSE - DIPSTICK 100 mg/dL (NEGATIVE); URINE KETONE NEGATIVE (NEGATIVE); URINE LEUK ESTERASE TRACE (NEGATIVE); URINE PH 5.5 (4.5-8.0); URINE PROTEIN - DIPSTICK >=300 mg/dL (NEG-TRACE); URINE SPECIFIC GRAVITY 1.025
[2021-07-15 21:18] LABS: URINE BILIRUBIN - DIPSTICK NEGATIVE (NEGATIVE); URINE NITRITE - DIPSTICK POSITIVE (Negative)
[2021-07-15 21:23] LABS: URINE SQUAMOUS EPITHELIAL CELL MODERATE EPI/hpf (0-FEW)
[2021-07-15 21:29] LABS: HEMATOCRIT 28.9 % (37.0-47.0); HEMOGLOBIN 8.9 g/dl (12.0-16.0); IMMATURE GRANULOCYTES 0.4 % (0.0-5.0); MEAN CELL VOLUME 90.3 fL CALC (80.0-100.0); MEAN CORPUSCULAR HGB 27.8 pG CALC (26.0-32.0); MEAN CORPUSCULAR HGB CONC 30.8 g/dL CAL (32.0-36.0); NEUT# 7.87 thou/uL (2.00-7.15); RED BLOOD COUNT 3.2 mill/uL (4.20-5.60); RED CELL DISTRI WIDTH 14.1 % (11.5-15.5)
[2021-07-15 21:46] LABS: BILIRUBIN, TOTAL 0.5 mg/dL (0.0-1.4); CREATININE 3.2 mg/dL (0.5-1.0); POTASSIUM 4.6 mmol/l (3.5-5.1); TOTAL PROTEIN 8.6 g/dL (6.3-8.2)
[2021-07-16 05:40] LABS: HEMATOCRIT 27.9 % (37.0-47.0); MEAN CORPUSCULAR HGB 28.4 pG CALC (26.0-32.0); MEAN CORPUSCULAR HGB CONC 32.3 g/dL CAL (32.0-36.0); RED BLOOD COUNT 3.17 mill/uL (4.20-5.60); RED CELL DISTRI WIDTH 13.9 % (11.5-15.5)
[2021-07-16 05:47] LABS: CREATININE 3.1 mg/dL (0.5-1.0); MAGNESIUM 1.3 mg/dL (1.6-2.3); POTASSIUM 4.5 mmol/l (3.5-5.1)
[2021-07-16 09:55] VITALS: BP 139/75
[2021-07-16 16:39] VITALS: BP 109/62
[2021-07-16 19:02] VITALS: BP 119/69
[2021-07-17 04:00] VITALS: BP 109/59
[2021-07-17 05:29] LABS: MEAN CELL VOLUME 91.9 fL CALC (80.0-100.0); MEAN CORPUSCULAR HGB 28.3 pG CALC (26.0-32.0); MEAN CORPUSCULAR HGB CONC 30.8 g/dL CAL (32.0-36.0); RED BLOOD COUNT 2.83 mill/uL (4.20-5.60)
[2021-07-17 05:52] LABS: CREATININE 3.1 mg/dL (0.5-1.0); POTASSIUM 4.3 mmol/l (3.5-5.1)
[2021-07-17 05:57] LABS: MAGNESIUM 1.8 mg/dL (1.6-2.3)
[2021-07-17 07:50] VITALS: BP 138/63
[2021-07-17 08:45] VITALS: BP 138/63
[2021-07-17] MEDS ORDERED: LEVAQUIN750 M1 PO (10:50)
[2021-07-17] MEDS ORDERED: LORTAB 7.57.5 MG PO (10:52)
== END 2021-07-17 12:10 | disposition home or self-care (01) ==
LOC: ED 20:33 → ED-I 23:00 → ED 23:20 → ED-I 23:21 → MS2 07-16 08:16
PROVIDERS: Emergency Medicine; Nurse Practitioner; ADMIT Hospitalist; ATTEND Hospitalist
DX: N39.0 Urinary tract infection, site not specified (principal); N17.0 Acute kidney failure with tubular necrosis; N20.1 Calculus of ureter; I12.9 Hypertensive chronic kidney disease with stage 1 through stage 4 chronic kidney disease, or unspecified chronic kidney disease; E11.22 Type 2 diabetes mellitus with diabetic chronic kidney disease; N18.30 Chronic kidney disease, stage 3 unspecified; I27.20 Pulmonary hypertension, unspecified; E11.42 Type 2 diabetes mellitus with diabetic polyneuropathy; I95.9 Hypotension, unspecified; E83.42 Hypomagnesemia; D63.1 Anemia in chronic kidney disease; N25.81 Secondary hyperparathyroidism of renal origin; E87.2 Acidosis; F32.A Depression, unspecified; F41.9 Anxiety disorder, unspecified; L40.50 Arthropathic psoriasis, unspecified; E66.01 Morbid (severe) obesity due to excess calories; Z96.0 Presence of urogenital implants; Z68.31 Body mass index [BMI] 31.0-31.9, adult; Z79.4 Long term (current) use of insulin; Z87.440 Personal history of urinary (tract) infections; Z20.822 Contact with and (suspected) exposure to COVID-19
CPT/HCPCS: G0378; J3475

== ENCOUNTER 2021-07-30 07:10 | Day surgery (SDC) | payer OTHER ==
[~2021-07-30] VITALS: Ht 160 cm; Wt 113.4 kg
[~2021-07-30 07:10] MED LIST changes: +LEVAQUIN750 M1 PO; +LORTAB 7.57.5 MG PO; +[UNRECOGNIZED DRUG - OTHER] PO
[2021-07-30 10:58] VITALS: BP 126/58
== END 2021-07-30 10:40 | disposition home or self-care (01) ==
LOC: ORM 07:10
PROVIDERS: ATTEND Urology
DX: N20.1 Calculus of ureter (principal); I12.9 Hypertensive chronic kidney disease with stage 1 through stage 4 chronic kidney disease, or unspecified chronic kidney disease; E11.22 Type 2 diabetes mellitus with diabetic chronic kidney disease; N18.30 Chronic kidney disease, stage 3 unspecified; E11.42 Type 2 diabetes mellitus with diabetic polyneuropathy; E78.5 Hyperlipidemia, unspecified; Z96.0 Presence of urogenital implants; Z79.4 Long term (current) use of insulin; Z87.442 Personal history of urinary calculi; Z87.440 Personal history of urinary (tract) infections
CPT/HCPCS: C1769; J1956; Q9967

== ENCOUNTER 2021-09-08 07:47 | Inpatient (IN) | payer OTHER ==
[~2021-09-08] VITALS: Ht 160 cm; Wt 105.0 kg
[~2021-09-08 07:47] MED LIST changes: +MIRTAZAPINE30 M1 PO; -[UNRECOGNIZED DRUG - OTHER] PO
[2021-09-08 09:08] LABS: HEMATOCRIT 25.3 % (37.0-47.0); HEMOGLOBIN 8.2 g/dl (12.0-16.0); IMMATURE GRANULOCYTES 0.9 % (0.0-5.0); MEAN CELL VOLUME 89.1 fL CALC (80.0-100.0); MEAN CORPUSCULAR HGB 28.9 pG CALC (26.0-32.0); MEAN CORPUSCULAR HGB CONC 32.4 g/dL CAL (32.0-36.0); NEUT# 6.29 thou/uL (2.00-7.15); RED BLOOD COUNT 2.84 mill/uL (4.20-5.60); RED CELL DISTRI WIDTH 14.3 % (11.5-15.5)
[2021-09-08 09:19] LABS: ALBUMIN 3.8 g/dL (3.2-5.0); CREATININE 2.8 mg/dL (0.5-1.0); POTASSIUM 4.6 mmol/l (3.5-5.1)
[2021-09-08 09:25] LABS: BILIRUBIN, TOTAL 0.2 mg/dL (0.0-1.4)
[2021-09-08] MEDS ORDERED: PERCOCET 5/325M1 TAB PO (10:04)
[2021-09-08] MEDS ORDERED: GABAPENTIN300 M2 PO (10:05)
[2021-09-08] MEDS ORDERED: AMITRIPTYLINE H50 MG PO (10:06)
[2021-09-08] MEDS ORDERED: PAROXETINE HCL20 MG PO (10:08)
[2021-09-08] MEDS ORDERED: FLUCONAZOLE150 MG PO (14:52)
[2021-09-08] MEDS ORDERED: BUPROPN HCL300 MG PO (14:53)
[2021-09-08] MEDS ORDERED: CYMBALTA60 MG PO (14:54)
[2021-09-08 15:53] VITALS: BP 159/75
[2021-09-08 19:45] VITALS: BP 155/63
[2021-09-09] VITALS (8 sets, daily range): BP systolic 131–191; BP diastolic 40–85
[2021-09-09 05:49] LABS: HEMATOCRIT 25.5 % (37.0-47.0); HEMOGLOBIN 8.2 g/dl (12.0-16.0); MEAN CELL VOLUME 90.4 fL CALC (80.0-100.0); MEAN CORPUSCULAR HGB 29.1 pG CALC (26.0-32.0); MEAN CORPUSCULAR HGB CONC 32.2 g/dL CAL (32.0-36.0); RED BLOOD COUNT 2.82 mill/uL (4.20-5.60); RED CELL DISTRI WIDTH 14.4 % (11.5-15.5)
[2021-09-09 06:11] LABS: CREATININE 2.4 mg/dL (0.5-1.0); POTASSIUM 4.9 mmol/l (3.5-5.1)
[2021-09-09 06:30] LABS: MAGNESIUM 1.3 mg/dL (1.6-2.3)
[2021-09-10] VITALS: BP 168/66
[2021-09-10 04:00] VITALS: BP 156/64
[2021-09-10 06:04] LABS: HEMATOCRIT 26.3 % (37.0-47.0); HEMOGLOBIN 8.3 g/dl (12.0-16.0); MEAN CORPUSCULAR HGB 28.7 pG CALC (26.0-32.0); MEAN CORPUSCULAR HGB CONC 31.6 g/dL CAL (32.0-36.0); RED BLOOD COUNT 2.89 mill/uL (4.20-5.60); RED CELL DISTRI WIDTH 14.4 % (11.5-15.5)
[2021-09-10 06:20] LABS: CREATININE 2.4 mg/dL (0.5-1.0)
[2021-09-10 06:21] LABS: MAGNESIUM 1.9 mg/dL (1.6-2.3)
[2021-09-10 06:22] LABS: POTASSIUM 5.2 mmol/l (3.5-5.1)
[2021-09-10 08:16] VITALS: BP 128/45
[2021-09-10] MEDS ORDERED: HUMALOG KW100 UNIT/M SC (10:40)
== END 2021-09-10 12:29 | disposition home health service (06) | DRG 256 ==
LOC: ED 07:47 → ED-I 11:53 → ED 12:24 → MS2 12:25
PROVIDERS: Family Medicine; Nurse Practitioner; ADMIT Hospitalist; ATTEND Hospitalist
PROC: 0X6S0Z2 Detachment at Right Ring Finger, Mid, Open Approach (ICD-10-PCS; principal; 2021-09-09)
DX: E11.52 Type 2 diabetes mellitus with diabetic peripheral angiopathy with gangrene (principal); Z68.41 Body mass index [BMI] 40.0-44.9, adult; I96 Gangrene, not elsewhere classified; L03.011 Cellulitis of right finger; E11.42 Type 2 diabetes mellitus with diabetic polyneuropathy; E11.22 Type 2 diabetes mellitus with diabetic chronic kidney disease; I12.9 Hypertensive chronic kidney disease with stage 1 through stage 4 chronic kidney disease, or unspecified chronic kidney disease; N18.30 Chronic kidney disease, stage 3 unspecified; E11.65 Type 2 diabetes mellitus with hyperglycemia; E87.5 Hyperkalemia; I27.20 Pulmonary hypertension, unspecified; E66.01 Morbid (severe) obesity due to excess calories; F41.9 Anxiety disorder, unspecified; F32.A Depression, unspecified; Z79.4 Long term (current) use of insulin; Z89.021 Acquired absence of right finger(s); Z89.422 Acquired absence of other left toe(s); Z89.421 Acquired absence of other right toe(s); Z20.822 Contact with and (suspected) exposure to COVID-19
CPT/HCPCS: J3475

== ENCOUNTER 2022-03-24 12:28 | Inpatient (IN) | payer OTHER ==
[~2022-03-24] VITALS: Ht 160 cm; Wt 112.8 kg
[2022-03-24] VITALS (16 sets, daily range): BP systolic 94–156; BP diastolic 51–75
[~2022-03-24 12:28] MED LIST changes: +AMITRIPTYLINE H50 MG PO; +CELEXA40 M1 PO; +CYMBALTA60 MG PO; +GABAPENTIN300 M2 PO; +HUMALOG KW100 UNIT/M SC; +PAROXETINE HCL20 MG PO
--- NOTE | 2022-03-24 13:07 | NUR ---
PT AMBULATED TO TX ROOM, STABLE
[2022-03-24 13:29] LABS: HEMATOCRIT 27.9 % (37.0-47.0); HEMOGLOBIN 8.8 g/dl (12.0-16.0); IMMATURE GRANULOCYTES 0.5 % (0.0-5.0); MEAN CELL VOLUME 89.4 fL CALC (80.0-100.0); MEAN CORPUSCULAR HGB 28.2 pG CALC (26.0-32.0); MEAN CORPUSCULAR HGB CONC 31.5 g/dL CAL (32.0-36.0); NEUT# 5.25 thou/uL (2.00-7.15); RED BLOOD COUNT 3.12 mill/uL (4.20-5.60); RED CELL DISTRI WIDTH 13.2 % (11.5-15.5)
[2022-03-24 13:51] LABS: ALBUMIN 4.3 g/dL (3.2-5.0); C-REACTIVE PROTEIN 3.3 mg/dL (0-0.9); TOTAL PROTEIN 7.9 g/dL (6.3-8.2)
[2022-03-24 13:52] LABS: BILIRUBIN, TOTAL 0.1 mg/dL (0.0-1.4); CREATININE 4.1 mg/dL (0.5-1.0)
--- NOTE | 2022-03-24 14:06 | NUR ---
Reassessment of patient completed. No distress noted.
--- NOTE | 2022-03-24 15:00 | NUR ---
Reassessment of patient completed. No distress noted.
--- NOTE | 2022-03-24 15:56 | NUR ---
Reassessment of patient completed. No distress noted.
--- NOTE | 2022-03-24 17:43 | NUR ---
BEDSIDE REPORT GIVEN TO MORRIS
--- NOTE | 2022-03-24 18:33 | NUR ---
PT RESTING IN HIGH FOWLERS POSITION. A/OX3 ASSESSMENT AND VS COMPLETED. HEART RHYHTM ON TELE. RESPIRATIONS UNLABORED. ROOM AIR. BOWEL SOUNDS ACTIVE. IV SITE TO RAC 20G. ABX INFUSING . WOUNDS TO FINGERS HANDS BI LATERAL PICTURES TAKEN CONSULT PER ER NURSE FOR DR. VILLALOBOS TO SEE PT FOR POSSIBLE SURGERY . PT DENIES ADDITIONAL NEEDS AT THE TIME ALL SAFETY PRECAUTIONS IN PLACE.CALLLIGHT INR EACH.
[2022-03-25] VITALS (9 sets, daily range): BP systolic 100–186; BP diastolic 47–78
[2022-03-25 00:51] LABS: URINE BILIRUBIN - DIPSTICK NEGATIVE (NEGATIVE); URINE BLOOD DIPSTICK TRACE-INTACT (NEGATIVE); URINE CLARITY CLEAR; URINE COLOR YELLOW; URINE GLUCOSE - DIPSTICK 100 mg/dL (NEGATIVE); URINE KETONE NEGATIVE (NEGATIVE); URINE LEUK ESTERASE NEGATIVE (Negative); URINE NITRITE - DIPSTICK NEGATIVE (Negative); URINE PROTEIN - DIPSTICK 30 mg/dL (NEG-TRACE); URINE SPECIFIC GRAVITY 1.015; URINE UROBILINOGEN - DIPSTICK 0.2 E.U./dL (0.2)
[2022-03-25 01:09] LABS: URINE BACTERIA FEW hpf; URINE EPITHELIAL CELLS FEW EPI/hpf (0-FEW); URINE WBC 0-2 WBC/hpf (0-5)
[2022-03-25 06:12] LABS: HEMATOCRIT 27.6 % (37.0-47.0); HEMOGLOBIN 8.9 g/dl (12.0-16.0); MEAN CELL VOLUME 88.5 fL CALC (80.0-100.0); MEAN CORPUSCULAR HGB 28.5 pG CALC (26.0-32.0); MEAN CORPUSCULAR HGB CONC 32.2 g/dL CAL (32.0-36.0); RED BLOOD COUNT 3.12 mill/uL (4.20-5.60); RED CELL DISTRI WIDTH 13.1 % (11.5-15.5)
[2022-03-25 06:25] LABS: ALBUMIN 3.6 g/dL (3.2-5.0); CREATININE 3.9 mg/dL (0.5-1.0); MAGNESIUM 1.5 mg/dL (1.6-2.3); POTASSIUM 4.9 mmol/l (3.5-5.1)
--- NOTE | 2022-03-25 08:00 | NUR ---
RECEIVED REPORT FROM CASH APPLICATIONS ANALYST RNBANG. PATIENT IS A&OX3, ABLE TO MAKE NEEDS KNOWN. PATIENT IS IN ROOM AIR. PATIENT IS ON TELEMONITOR. PATIENT SIGN CONSENT FOR AMPUTATION PROCEDURE THIS MORNING. ASSESMENT COMPLETED. NO SIGNS OF DISTRESS OR PAIN NOTED NOR VERBALIZED AT THIS TIME. BED IN LOWEST POSITION, CALL LIGHT WITHIN REACH.
--- NOTE | 2022-03-25 11:05 | NUR ---
PATIENT IS BEING TRANSPORTED VIA STRETCHER TO THE OR FOR PROCEDURE BY OR RNS.
--- NOTE | 2022-03-25 13:01 | NUR ---
PATIENT IS DOWN IN THE OR.
[2022-03-25] MEDS ORDERED: CEPHALEXIN500 MG PO (13:22)
[2022-03-25] MEDS ORDERED: PAROXETINE20 MG PO (13:23)
[2022-03-25] MEDS ORDERED: MUPIROCIN2 % EX (13:23)
--- NOTE | 2022-03-25 13:50 | NUR ---
RECEIVED REPORT FROM OR NURSE. PATIENT WAS TRANSPORTED FROM OR VIA STRETCHER. PATIENT IS STABLE AND DENIES ANY PAIN AT THIS TIME, ON ROOM AIR. PATIENT IS A&OX3. NS AT 75ML/HR. BED IN LOWEST POSITION, CALL LIGHT WITHIN REACH.
--- NOTE | 2022-03-25 16:00 | NUR ---
WPDES IS SITTING ON THE SIDE OF THE BED, USING HER CELLPHONE STATED "I'M DOING MY SHOPPING LIST". ALSO MENTIONED SHE WAS STARTING TO HAVE A HEADACHE BUT DIDN'T WANT MEDICATION AT THE TIME, SHE WOULD ASK FOR IT LATER IF SHE FELT LIKE SHE NEEDED IT. PATIENT IS ABLE TO MAKE NEEDS KNOWN AND IS COMPLIANT WITH TREATMENTS. BED IN LOWEST POSITION, CALL LIGHT WITHIN REACH.
[2022-03-26] VITALS (9 sets, daily range): BP systolic 121–171; BP diastolic 49–76
[2022-03-26] MEDS ORDERED: METOPROL TAR25 MG PO (02:35)
[2022-03-26] MEDS ORDERED: LISINOPRIL20 M1 PO (02:36)
[2022-03-26 06:34] LABS: ALBUMIN 3.4 g/dL (3.2-5.0); CREATININE 3.4 mg/dL (0.5-1.0)
--- NOTE | 2022-03-26 07:45 | NUR ---
Pt sitting on the side of the bed. a&o x4. no distress noted. clear breath sounds upon auscultation. active bowel sounds x4 quadrants. IV healthy and patent with ivf infusing per mar orders. clinical auditor in place. 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 dressing to be changed per MD orders, pt requesting to do so after she "cleans up", denies any pain at this time. assessment completed. discussed poc. call light within reach.
--- NOTE | 2022-03-26 09:27 | NUR ---
Dr Johnson at bedside discussing POC and assessment
--- NOTE | 2022-03-26 12:00 | NUR ---
Dressing change completed per MD orders, surgical sites CDI with sutures in place, tolerated well. dry gauze dressing applied per orders. call light within reach.
--- NOTE | 2022-03-26 16:20 | NUR ---
Pt sitting on the side of the bed. no distress or needs reported. call light within reach.
[2022-03-27 03:30] VITALS: BP 138/52
[2022-03-27 06:12] LABS: ALBUMIN 3.6 g/dL (3.2-5.0); CREATININE 3.7 mg/dL (0.5-1.0); MAGNESIUM 1.6 mg/dL (1.6-2.3); POTASSIUM 4.6 mmol/l (3.5-5.1)
[2022-03-27 07:17] VITALS: BP 150/51
--- NOTE | 2022-03-27 08:03 | NUR ---
FIT CHANGE REPORT, PT SLEEPING BUT AWAKENS TO VERBAL STIMULI, DENEIS DISCOMFORT, TELE MONITOR IN PLACE, IVF 0.9 NS INFUSING AT 75CC/HR TO SITE IN [facility], ORDERS NOW RECEIVED TO DC IVF AND IS DONE, CALL TINAJERO IN REACH AND BED LOCKED IN LOWEST POSITION.
[2022-03-27 09:40] VITALS: BP 145/55
[2022-03-27 10:46] VITALS: BP 165/52
--- NOTE | 2022-03-27 12:00 | NUR ---
RESTING IN BED, SLEEPING, AWAKENED AND STATES SHE JUST FEELS TIRED BUT DENIES PAIN, NEEDS ADDRESSED.
[2022-03-27 16:39] VITALS: BP 125/37
--- NOTE | 2022-03-27 18:28 | NUR ---
DRESSINGS TO AMPUTATED FINGERS ON Y[place]INE HANDS CHANGED, OLD DRESSING REMOVED, SUTURES INTACT, NEW DSD APPLIED AND SECURED WITH KERLIX & TAPE
[2022-03-27 19:42] VITALS: BP 133/45
[2022-03-28 00:14] VITALS: BP 132/39
[2022-03-28 04:10] VITALS: BP 128/60
[2022-03-28 05:35] LABS: ALBUMIN 3.4 g/dL (3.2-5.0); CREATININE 3.3 mg/dL (0.5-1.0); POTASSIUM 4.3 mmol/l (3.5-5.1)
[2022-03-28 06:23] VITALS: BP 129/62
--- NOTE | 2022-03-28 07:21 | NUR ---
PT RESTING IN LOW FOWLERS POSITION. A/OX3 ASSESSMENT AND VS COMPLETED. HEART RHYTHM ON TELE. RESPIRATIONS UNLABORED. BOWEL SOUNDS ACTIVE. DRESSING TO AMUPATED FINGERS CDI. IV SITE TO LEFT HAND 22G. S.L NOTED. PT DENIES ADDITIONAL NEEDS AT THE TIME ALL SAFETY PRECAUTIONS IN PLACE WITH CALL LIGHT IN REACH.
[2022-03-28 10:16] VITALS: BP 129/62
--- NOTE | 2022-03-28 12:16 | NUR ---
PT RESTING IN LOW FOWERLS POSITION DRESSING CHANGE TO AMPUATED FINGERS. COMPLETED. SAFETY PRECAUTIONS IN PLACE IV FLUSHED.
[2022-03-28 14:20] VITALS: BP 143/76
--- NOTE | 2022-03-28 15:44 | NUR ---
PT IV FLUSHED EDUCATED PT ON IV SITE CARE. AL SAEFTY PRECAUTIONS IN PLACE.
[2022-03-28 18:54] VITALS: BP 141/50
--- NOTE | 2022-03-28 20:00 | NUR ---
received report from nurse tim, patient resting in bed,watching tv, alert orineted, saline lock on lac patent flushes well. remains on telemetry, dressing on rt 3rd and rt 5th digit finger cdi, on telemetry, lbm 03/27, active bowel sounds call light in reach.
--- NOTE | 2022-03-29 | NUR ---
PATIENT RESTING IN BED, PLAYING ON CELPHONE, DENIES PAIN AT THIS TIME, CALL LIGHT AT REACH.
[2022-03-29 00:12] VITALS: BP 136/41
[2022-03-29 04:24] VITALS: BP 135/60
--- NOTE | 2022-03-29 04:53 | NUR ---
CALLED ED, PATIENT WAS OFF TELE, TELEMETRY LEADS FIXED, PATIENT ON SR 71.CALL LIGHT IN REACH.
[2022-03-29 05:41] LABS: HEMATOCRIT 25.3 % (37.0-47.0); HEMOGLOBIN 8.2 g/dl (12.0-16.0); IMMATURE GRANULOCYTES 0.9 % (0.0-5.0); MEAN CELL VOLUME 88.8 fL CALC (80.0-100.0); MEAN CORPUSCULAR HGB 28.8 pG CALC (26.0-32.0); MEAN CORPUSCULAR HGB CONC 32.4 g/dL CAL (32.0-36.0); NEUT# 4.6 thou/uL (2.00-7.15); RED BLOOD COUNT 2.85 mill/uL (4.20-5.60); RED CELL DISTRI WIDTH 13.5 % (11.5-15.5)
[2022-03-29 06:06] VITALS: BP 126/42
[2022-03-29 06:21] LABS: ALBUMIN 3.6 g/dL (3.2-5.0); CREATININE 3.5 mg/dL (0.5-1.0); MAGNESIUM 1.8 mg/dL (1.6-2.3); POTASSIUM 3.9 mmol/l (3.5-5.1); TOTAL PROTEIN 7.4 g/dL (6.3-8.2)
[2022-03-29 06:22] LABS: BILIRUBIN, TOTAL 0.2 mg/dL (0.0-1.4)
--- NOTE | 2022-03-29 07:09 | NUR ---
PT RESTING IN LOW FOWLERS POSITION. A/OX3 ASSESSMENT AND VS COMPLETED. HEART RHYTHM ON TELE. RESPIRATIONS UNLABORED. BOWEL SOUNDS ACTIVE. PT IV SITE NOTED TO 22G LAC.RIGHT ARM GLUCOSE MONITOR IMPLANT. PT DENIES ADDITIONAL NEEDS . DRESSING TO AMUPUTATIONS CDI. ALL SAFETY PRECAUTIONS IN PLACE CALL LIGHTIN REACH
[2022-03-29] MEDS ORDERED: AMLODIPINE BESYL5 MG PO (08:44)
[2022-03-29] MEDS ORDERED: SODIUM BICAR650 MG PO (08:45)
[2022-03-29 10:52] VITALS: BP 132/59
[2022-03-29] MEDS ORDERED: VIBRAMYCIN100 M2 PO (11:24)
[2022-03-29] MEDS ORDERED: OMNICEF300 MG PO (11:26)
--- NOTE | 2022-03-29 12:17 | NUR ---
PT TO BE DC PT STATES DOES NOT HAVE A RIDE TILL 1500 THIS AFTERNOON INITIATED UNDERSTANDING. ALL SAFETY PRECAUTINS IN [place].
--- NOTE | 2022-03-29 14:39 | NUR ---
Discharge instructions given. Patient verbalizes understanding of same. Discharged in stable condition via Wheelchair to home with volunteer . All belongings sent with pt iv removed found disloged catheter intact. tele removed
== END 2022-03-29 14:43 | disposition home or self-care (01) | DRG 256 ==
LOC: ED 12:28 → ED-I 15:07 → MS2 15:21 → ED 15:21 → MS2 21:32
PROVIDERS: Internal Medicine Nephrology; Nurse Practitioner; ADMIT Internal Medicine; ATTEND Internal Medicine
PROC: 0X6V0Z3 Detachment at Right Little Finger, Low, Open Approach (ICD-10-PCS; principal; 2022-03-25)
PROC: 0X6R0Z3 Detachment at Left Middle Finger, Low, Open Approach (ICD-10-PCS; 2022-03-25)
DX: E11.52 Type 2 diabetes mellitus with diabetic peripheral angiopathy with gangrene (principal); I96 Gangrene, not elsewhere classified; E87.2 Acidosis; L03.113 Cellulitis of right upper limb; N18.4 Chronic kidney disease, stage 4 (severe); N17.9 Acute kidney failure, unspecified; N25.81 Secondary hyperparathyroidism of renal origin; M86.8X4 Other osteomyelitis, hand; L98.496 Non-pressure chronic ulcer of skin of other sites with bone involvement without evidence of necrosis; E11.69 Type 2 diabetes mellitus with other specified complication; E11.622 Type 2 diabetes mellitus with other skin ulcer; E11.42 Type 2 diabetes mellitus with diabetic polyneuropathy; E11.22 Type 2 diabetes mellitus with diabetic chronic kidney disease; I12.9 Hypertensive chronic kidney disease with stage 1 through stage 4 chronic kidney disease, or unspecified chronic kidney disease; E86.9 Volume depletion, unspecified; D63.1 Anemia in chronic kidney disease; E83.42 Hypomagnesemia; F41.9 Anxiety disorder, unspecified; F32.A Depression, unspecified; Z88.1 Allergy status to other antibiotic agents; Z89.022 Acquired absence of left finger(s); Z79.4 Long term (current) use of insulin; Z89.021 Acquired absence of right finger(s); Z20.822 Contact with and (suspected) exposure to COVID-19
CPT/HCPCS: J3475; Q3014; Q5106 EC

== ENCOUNTER 2022-07-26 15:27 | Inpatient (IN) | payer OTHER ==
[~2022-07-26] VITALS: Ht 160 cm; Wt 110.0 kg
[2022-07-26] VITALS (18 sets, daily range): BP systolic 86–159; BP diastolic 25–77
[~2022-07-26 15:27] MED LIST changes: +AMLODIPINE BESYL5 MG PO; +CEPHALEXIN500 MG PO; +LISINOPRIL20 M1 PO; +MUPIROCIN2 % EX; +OMNICEF300 MG PO; +PAROXETINE20 MG PO; +SODIUM BICAR650 MG PO; +VIBRAMYCIN100 M2 PO
[2022-07-26] MEDS ORDERED: HUMALOG100 UNIT (16:24)
[2022-07-26] MEDS ORDERED: LISINOPRIL20 M1 PO (16:25)
[2022-07-26 17:32] LABS: BASO% 0.3 % (0-3); EOS% 2.8 % (0-8); HEMATOCRIT 26.7 % (37.0-47.0); HEMOGLOBIN 8.5 g/dl (12.0-16.0); IMMATURE GRANULOCYTES 0.4 % (0.0-5.0); LYMPH% 27.6 % (15-41); MEAN CELL VOLUME 91.4 fL CALC (80.0-100.0); MEAN CORPUSCULAR HGB 29.1 pG CALC (26.0-32.0); MEAN CORPUSCULAR HGB CONC 31.8 g/dL CAL (32.0-36.0); MONO% 5.5 % (2-13); NEUT# 7.12 thou/uL (2.00-7.15); NEUT% 63.4 % (42-76); RED BLOOD COUNT 2.92 mill/uL (4.20-5.60); RED CELL DISTRI WIDTH 13.5 % (11.5-15.5)
[2022-07-26 17:42] LABS: ALBUMIN 4.2 g/dL (3.2-5.0); TOTAL PROTEIN 8.3 g/dL (6.3-8.2)
[2022-07-26 18:32] LABS: CREATININE 4.9 mg/dL (0.5-1.0)
[2022-07-26 18:33] LABS: POTASSIUM 7.1 mmol/l (3.5-5.1)
[2022-07-26] MEDS ORDERED: AMITRIPTYLINE H50 MG PO (22:20)
[2022-07-26] MEDS ORDERED: CELEXA40 M1 PO (22:21)
[2022-07-27] VITALS (8 sets, daily range): BP systolic 125–157; BP diastolic 49–70
[2022-07-27 07:43] LABS: CREATININE 4.5 mg/dL (0.5-1.0)
[2022-07-27 07:47] LABS: POTASSIUM 6.2 mmol/l (3.5-5.1)
[2022-07-27 12:01] LABS: ALBUMIN 3.7 g/dL (3.2-5.0); CREATININE 4.4 mg/dL (0.5-1.0)
[2022-07-27 12:02] LABS: URINE BILIRUBIN - DIPSTICK NEGATIVE (NEGATIVE); URINE BLOOD DIPSTICK TRACE-INTACT (NEGATIVE); URINE CLARITY CLEAR; URINE COLOR YELLOW; URINE GLUCOSE - DIPSTICK 100 mg/dL (NEGATIVE); URINE KETONE NEGATIVE (NEGATIVE); URINE LEUK ESTERASE TRACE (Negative); URINE NITRITE - DIPSTICK NEGATIVE (Negative); URINE PROTEIN - DIPSTICK 30 mg/dL (NEG-TRACE); URINE UROBILINOGEN - DIPSTICK 0.2 E.U./dL (0.2)
[2022-07-27 12:03] LABS: POTASSIUM 5.2 mmol/l (3.5-5.1)
[2022-07-27 12:08] LABS: URINE RBC 0-2 RBC/hpf (0-5); URINE RENAL EPITHELIAL CELLS RARE hpf
[2022-07-28] VITALS (10 sets, daily range): BP systolic 127–156; BP diastolic 44–77
[2022-07-28 06:06] LABS: ALBUMIN 3.5 g/dL (3.2-5.0); CREATININE 4.1 mg/dL (0.5-1.0); TOTAL PROTEIN 7.1 g/dL (6.3-8.2)
[2022-07-28 06:10] LABS: MAGNESIUM 1.3 mg/dL (1.6-2.3); POTASSIUM 5.2 mmol/l (3.5-5.1)
[2022-07-28 06:11] LABS: BASO% 0.4 % (0-3); EOS% 4.2 % (0-8); HEMATOCRIT 25.6 % (37.0-47.0); IMMATURE GRANULOCYTES 0.2 % (0.0-5.0); LYMPH% 42.4 % (15-41); MEAN CELL VOLUME 91.8 fL CALC (80.0-100.0); MEAN CORPUSCULAR HGB 28.7 pG CALC (26.0-32.0); MEAN CORPUSCULAR HGB CONC 31.3 g/dL CAL (32.0-36.0); MONO% 7.7 % (2-13); NEUT# 4.14 thou/uL (2.00-7.15); NEUT% 45.1 % (42-76); RED BLOOD COUNT 2.79 mill/uL (4.20-5.60); RED CELL DISTRI WIDTH 13.3 % (11.5-15.5)
[2022-07-29] VITALS (7 sets, daily range): BP systolic 102–134; BP diastolic 35–49
[2022-07-29 06:46] LABS: ALBUMIN 3.3 g/dL (3.2-5.0); CREATININE 3.8 mg/dL (0.5-1.0); TOTAL PROTEIN 6.9 g/dL (6.3-8.2)
[2022-07-29 06:47] LABS: BASO% 0.4 % (0-3); EOS% 4.2 % (0-8); HEMATOCRIT 27.6 % (37.0-47.0); HEMOGLOBIN 8.5 g/dl (12.0-16.0); IMMATURE GRANULOCYTES 0.3 % (0.0-5.0); LYMPH% 36.3 % (15-41); MEAN CELL VOLUME 93.6 fL CALC (80.0-100.0); MEAN CORPUSCULAR HGB 28.8 pG CALC (26.0-32.0); MEAN CORPUSCULAR HGB CONC 30.8 g/dL CAL (32.0-36.0); MONO% 8.1 % (2-13); NEUT# 3.89 thou/uL (2.00-7.15); NEUT% 50.7 % (42-76); RED BLOOD COUNT 2.95 mill/uL (4.20-5.60); RED CELL DISTRI WIDTH 13.5 % (11.5-15.5)
[2022-07-29 06:54] LABS: MAGNESIUM 2.1 mg/dL (1.6-2.3); POTASSIUM 5.4 mmol/l (3.5-5.1)
[2022-07-29] MEDS ORDERED: OMNICEF300 MG PO (12:01)
[2022-07-29] MEDS ORDERED: VIBRAMYCIN100 M2 PO (12:01)
[2022-08-03] MEDS ORDERED: AMOX/K CLAV875 M1 PO (12:10)
== END 2022-07-29 15:11 | disposition home or self-care (01) | DRG 988 ==
LOC: ED 15:27 → ED-I 18:30 → ED 19:05 → MS2 19:06
PROVIDERS: Internal Medicine; Internal Medicine Nephrology; Nurse Practitioner; Nurse Practitioner Family; ADMIT Internal Medicine; ATTEND Internal Medicine
PROC: 0X6T0Z1 Detachment at Left Ring Finger, High, Open Approach (ICD-10-PCS; principal; 2022-07-28)
DX: E11.69 Type 2 diabetes mellitus with other specified complication (principal); E87.20 Acidosis, unspecified; M86.8X4 Other osteomyelitis, hand; I12.0 Hypertensive chronic kidney disease with stage 5 chronic kidney disease or end stage renal disease; N17.9 Acute kidney failure, unspecified; E86.9 Volume depletion, unspecified; E11.42 Type 2 diabetes mellitus with diabetic polyneuropathy; L03.012 Cellulitis of left finger; E11.22 Type 2 diabetes mellitus with diabetic chronic kidney disease; N18.5 Chronic kidney disease, stage 5; D63.1 Anemia in chronic kidney disease; N25.81 Secondary hyperparathyroidism of renal origin; E87.5 Hyperkalemia; E83.42 Hypomagnesemia; F41.9 Anxiety disorder, unspecified; F32.A Depression, unspecified; L40.50 Arthropathic psoriasis, unspecified; T23.022S Burn of unspecified degree of single left finger (nail) except thumb, sequela; T79.8XXS Other early complications of trauma, sequela; X08.8XXS Exposure to other specified smoke, fire and flames, sequela; Z86.14 Personal history of Methicillin resistant Staphylococcus aureus infection; Z79.4 Long term (current) use of insulin; Z88.1 Allergy status to other antibiotic agents; Z89.022 Acquired absence of left finger(s); Z89.021 Acquired absence of right finger(s); Z89.411 Acquired absence of right great toe; Z89.412 Acquired absence of left great toe
CPT/HCPCS: J1756; J3475; Q5106 EC

== ENCOUNTER 2022-11-01 18:39 | Emergency (ER) | payer OTHER ==
[~2022-11-01] VITALS: Ht 160 cm; Wt 113.0 kg
[~2022-11-01 18:39] MED LIST changes: +AMOX/K CLAV875 M1 PO; +HUMALOG100 UNIT
[2022-11-01] MEDS ORDERED: CALCIUM ACETAT667 M1 PO (19:08)
[2022-11-01] MEDS ORDERED: LISINOPRIL10 MG PO (19:08)
[2022-11-01] MEDS ORDERED: VIBRAMYCIN100 M2 PO (20:00)
[2022-11-01] MEDS ORDERED: HYDROXYZ HCL10 MG PO (20:00)
[2022-11-01 20:34] VITALS: BP 104/48
== END 2022-11-01 20:34 | disposition home or self-care (01) ==
LOC: ED 18:39
DX: T24.202A Burn of second degree of unspecified site of left lower limb, except ankle and foot, initial encounter (principal); T31.0 Burns involving less than 10% of body surface; L25.9 Unspecified contact dermatitis, unspecified cause; I10 Essential (primary) hypertension; E11.42 Type 2 diabetes mellitus with diabetic polyneuropathy; Z86.14 Personal history of Methicillin resistant Staphylococcus aureus infection; Z79.4 Long term (current) use of insulin; X19.XXXA Contact with other heat and hot substances, initial encounter

== ENCOUNTER 2023-07-06 16:16 | Emergency (ER) | payer MEDICARE, OTHER ==
[~2023-07-06] VITALS: Ht 160 cm; Wt 105.6 kg
[~2023-07-06 16:16] MED LIST changes: +CALCIUM ACETAT667 M1 PO; +FUROSEMIDE20 MG PO; +HYDROXYZ HCL10 MG PO; +HYDROXYZ HCL25 MG PO; +TRAZODONE HCL50 MG PO; +VITAMIN D1.25 MG PO
[2023-07-06 16:28] VITALS: BP 106/49
[2023-07-06 16:31] VITALS: BP 114/49
[2023-07-06 16:46] VITALS: BP 106/49
[2023-07-06 17:01] VITALS: BP 113/54
[2023-07-06 17:29] VITALS: BP 113/54
== END 2023-07-06 18:25 | disposition home or self-care (01) ==
LOC: ED 16:16
DX: E11.69 Type 2 diabetes mellitus with other specified complication (principal); M86.8X4 Other osteomyelitis, hand; E11.42 Type 2 diabetes mellitus with diabetic polyneuropathy; I12.0 Hypertensive chronic kidney disease with stage 5 chronic kidney disease or end stage renal disease; E11.22 Type 2 diabetes mellitus with diabetic chronic kidney disease; N18.6 End stage renal disease; Z99.2 Dependence on renal dialysis; Z79.4 Long term (current) use of insulin

== ENCOUNTER 2023-07-12 15:23 | Emergency (ER) | payer MEDICARE, OTHER ==
[~2023-07-12] VITALS: Ht 160 cm; Wt 70.0 kg
[2023-07-12 15:56] VITALS: BP 134/63
[2023-07-12 16:01] VITALS: BP 148/78
[2023-07-12 16:30] VITALS: BP 152/75
[2023-07-12 16:59] LABS: BASO% 0.3 % (0-3); EOS% 3.7 % (0-8); HEMATOCRIT 26.8 % (37.0-47.0); HEMOGLOBIN 8.2 g/dl (12.0-16.0); IMMATURE GRANULOCYTES 1.3 % (0.0-5.0); LYMPH% 20.5 % (15-41); MEAN CELL VOLUME 86.2 fL CALC (80.0-100.0); MEAN CORPUSCULAR HGB 26.4 pG CALC (26.0-32.0); MEAN CORPUSCULAR HGB CONC 30.6 g/dL CAL (32.0-36.0); MONO% 6.5 % (2-13); NEUT# 6.86 thou/uL (2.00-7.15); NEUT% 67.7 % (42-76); RED BLOOD COUNT 3.11 mill/uL (4.20-5.60)
[2023-07-12 17:22] LABS: ALBUMIN 3.8 g/dL (3.2-5.0); BILIRUBIN, TOTAL 0.3 mg/dL (0.02-1.3); POTASSIUM 4.1 mmol/l (3.5-5.1)
[2023-07-12 17:35] LABS: CREATININE 9.4 mg/dL (0.5-1.0)
[2023-07-12 19:28] VITALS: BP 152/75
== END 2023-07-12 19:29 | disposition short-term general hospital (02) ==
LOC: ED 15:23
PROVIDERS: Family Medicine
DX: E11.69 Type 2 diabetes mellitus with other specified complication (principal); M86.8X4 Other osteomyelitis, hand; E11.22 Type 2 diabetes mellitus with diabetic chronic kidney disease; I12.0 Hypertensive chronic kidney disease with stage 5 chronic kidney disease or end stage renal disease; N18.6 End stage renal disease; E11.42 Type 2 diabetes mellitus with diabetic polyneuropathy; Z99.2 Dependence on renal dialysis; Z79.4 Long term (current) use of insulin; Z79.02 Long term (current) use of antithrombotics/antiplatelets; Z89.011 Acquired absence of right thumb
CPT/HCPCS: J0878